=== PATIENT | female | born 1975 | race Hispanic/Latino ===

== ENCOUNTER 2017-07-03 14:52 | Emergency (ER) | payer MEDICAID ==
[~2017-07-03 14:52] MED LIST: AMLO5TAB2 PO; CA C1TAB73 PO; CARV25TA PO; CETI10TA57 PO; FOLI1TAB85 PO; LOSA50TA37 PO; PANT40TA25 PO; ROPI1TAB11 PO; SERT20OR6 PO; SEVE800 PO; TRAM50TA4 PO; TRAZ-144 PO
[2017-07-03 16:10] LABS: BASOPHILS % (AUTO) 0.6 % (0.0-5.0); EOSINOPHILS % (AUTO) 5.1 % (0.0-8.0); HEMATOCRIT 27.2 % (36-48); LYMPHOCYTES % (AUTO) 12.7 % (21.0-51.0); MEAN CORPUSCULAR HEMOGLOBIN 31.1 pg (27.0-33.0); MEAN CORPUSCULAR HGB CONC 35.1 g/dL (32.0-36.0); MEAN CORPUSCULAR VOLUME 88.5 fL (79-99); MONOCYTES % (AUTO) 6.7 % (3.0-13.0); NEUTROPHILS % (AUTO) 74.9 % (40.0-77.0); PLATELET COUNT (AUTO) 88 K/uL (130-400); RED BLOOD CELL COUNT(AUTO) 3.07 MIL/uL (4.00-5.50); RED CELL DISTRIBUTION WIDTH 16.1 % (11.0-15.5)
[2017-07-03 16:22] LABS: INR 0.97 (0.85-1.15); PARTIAL THROMBOPLASTIN TIME 18.6 SEC (26.3-35.5); PROTHROMBIN TIME 10.2 SEC (9.6-11.6)
[2017-07-03 16:24] LABS: ALBUMIN 3.9 g/dL (3.5-5.0); BILIRUBIN,TOTAL 0.9 mg/dL (0.2-1.0); POTASSIUM 4.1 mmol/L (3.5-5.1); TOTAL PROTEIN, SERUM 7.4 g/dL (6.0-8.3)
[2017-07-03 16:25] LABS: B-TYPE NATRIURETIC PEPTIDE 2730 pg/mL (0-100)
[2017-07-03 16:30] LABS: CREATININE 8.8 mg/dL (0.5-1.5)
[2017-07-03] MEDS ORDERED: CLONIDINE HCL 0.1 MG TABLET ONE (16:31)
[2017-07-03 17:12] LABS: APPEARANCE,URINE SL CLOUDY (CLEAR); BILIRUBIN,URINE NEGATIVE (NEGATIVE); COLOR,URINE YELLOW (YELLOW); GLUCOSE, URINE (UA) 250 mg/dL (NEGATIVE); KETONES,URINE NEGATIVE (NEGATIVE); LEUKOCYTE ESTERASE ,URINE LARGE (NEGATIVE); NITRATE,URINE NEGATIVE (NEGATIVE); OCCULT BLOOD,URINE SMALL (NEGATIVE); PH,URINE 8.5 (5.0-8.0); PROTEIN,URINE >=300 (NEGATIVE); UROBILINOGEN,URINE 0.2 mg/dL (0.2-1.0)
[2017-07-03 17:25] LABS: WBC,URINE 26-50 /HPF (0-1)
[2017-07-03 17:26] LABS: BACTERIA,URINE Moderate /HPF (None Seen); RENAL EPITHELIAL CELLS,URINE Few /HPF (None Seen); TRANSITIONAL EPI CELLS,URINE Moderate /HPF (None Seen)
[2017-07-03] MEDS ORDERED: SODIUM CHLORIDE 0.9% 50 ML IV ONE (17:36)
[2017-07-03] MEDS ORDERED: CEFTRIAXONE SODIUM 1 GM ONE ×2 (17:36→17:54)
[2017-07-03] MEDS ORDERED: LIDOCAINE HCL-MPF 1% 2ML VIAL ONE (17:55)
== END 2017-07-03 18:19 | disposition home or self-care (01) ==
LOC: EDH 14:52
DX: N30.00 Acute cystitis without hematuria (principal); I12.0 Hypertensive chronic kidney disease with stage 5 chronic kidney disease or end stage renal disease; N18.6 End stage renal disease; Z72.0 Tobacco use
CPT/HCPCS: 36415; 71045; 80053; 81001; 83690; 83880; 84484; 85025; 85610; 85730; 87040 ×2; 87804 ×2; 93005; 96372; 99285; J0696 ×2; J3490

== ENCOUNTER 2017-07-17 20:15 | Emergency (ER) | payer MEDICAID ==
[2017-07-17] MEDS ORDERED: IPRATROPIUM/ALBUTEROL SULFATE 3 ML SOLUTION IH ONE (20:42)
[2017-07-17 20:58] LABS: BASOPHILS % (AUTO) 4.1 % (0.0-5.0); EOSINOPHILS % (AUTO) 4.1 % (0.0-8.0); HEMATOCRIT 28.5 % (36-48); LYMPHOCYTES % (AUTO) 8.3 % (21.0-51.0); MEAN CORPUSCULAR HGB CONC 34.5 g/dL (32.0-36.0); MONOCYTES % (AUTO) 4.6 % (3.0-13.0); NEUTROPHILS % (AUTO) 78.9 % (40.0-77.0); PLATELET COUNT (AUTO) 116 K/uL (130-400); RED BLOOD CELL COUNT(AUTO) 3.17 MIL/uL (4.00-5.50); WHITE BLOOD COUNT (AUTO) 5.5 K/uL (4.8-10.8)
[2017-07-17 21:06] LABS: INR 0.99 (0.85-1.15); PROTHROMBIN TIME 10.4 SEC (9.6-11.6)
[2017-07-17 21:20] LABS: ALBUMIN 3.8 g/dL (3.5-5.0); BILIRUBIN,TOTAL 1.4 mg/dL (0.2-1.0); CREATINE KINASE MB 0.8 ng/mL (0.5-3.6); POTASSIUM 4.7 mmol/L (3.5-5.1); TOTAL PROTEIN, SERUM 7.1 g/dL (6.0-8.3)
[2017-07-17 21:24] LABS: B-TYPE NATRIURETIC PEPTIDE 3220 pg/mL (0-100); CREATININE 14.2 mg/dL (0.5-1.5)
[2017-07-17] MEDS ORDERED: CARVEDILOL 12.5 MG TABLET PO ONE (21:58)
[2017-07-17] MEDS ORDERED: HYDROCHLOROTHIAZIDE 25 MG TABLET ONE (22:01)
[2017-07-17] MEDS ORDERED: HYDRALAZINE HCL 20 MG/ML VIAL ONE ×2 (22:39→23:36)
[2017-07-17] MEDS ORDERED: HYDROXYZINE HCL 25 MG TABLET ONE (23:35)
== END 2017-07-18 00:03 | disposition home or self-care (01) ==
LOC: EDH 20:15
DX: I12.0 Hypertensive chronic kidney disease with stage 5 chronic kidney disease or end stage renal disease (principal); N18.6 End stage renal disease; B34.9 Viral infection, unspecified; Z90.710 Acquired absence of both cervix and uterus; Z99.2 Dependence on renal dialysis; Z98.890 Other specified postprocedural states
CPT/HCPCS: 36415; 71045; 80053; 82550; 82553; 83690; 83880; 84484; 85025; 85610; 85730; 93005; 94640; 96365; 96376; 99285; J0360 ×2

== ENCOUNTER → 2017-08-17 | Outpatient (CLI) | payer MEDICAID ==
[~2017-08-17] MED LIST changes: -TRAZ-144 PO; +TRAZ-185 PO
== END | disposition home or self-care (01) ==
LOC: SHCH 15:52
PROVIDERS: ATTEND Internal Medicine Cardiovascular Disease
DX: I51.7 Cardiomegaly (principal); I34.0 Nonrheumatic mitral (valve) insufficiency
CPT/HCPCS: 93306

== ENCOUNTER 2017-09-28 19:51 | Observation (INO) | payer MEDICAID ==
[2017-09-28 20:24] LABS: BASOPHILS % (AUTO) 0.3 % (0.0-5.0); EOSINOPHILS % (AUTO) 0.9 % (0.0-8.0); HEMATOCRIT 38.8 % (36-48); LYMPHOCYTES % (AUTO) 5.6 % (21.0-51.0); MEAN CORPUSCULAR HEMOGLOBIN 29.4 pg (27.0-33.0); MEAN CORPUSCULAR HGB CONC 32.9 g/dL (32.0-36.0); MEAN CORPUSCULAR VOLUME 89.4 fL (79-99); MONOCYTES % (AUTO) 5.7 % (3.0-13.0); NEUTROPHILS % (AUTO) 87.5 % (40.0-77.0); PLATELET COUNT (AUTO) 95 K/uL (130-400); RED BLOOD CELL COUNT(AUTO) 4.33 MIL/uL (4.00-5.50); RED CELL DISTRIBUTION WIDTH 17.9 % (11.0-15.5); WHITE BLOOD COUNT (AUTO) 6.3 K/uL (4.8-10.8)
[2017-09-28] MEDS ORDERED: ACETAMINOPHEN EXTRA STRENGTH 500 MG TABLET ONE (20:36)
[2017-09-28] MEDS ORDERED: PROMETHAZINE HCL 25 MG/ML 1ML AMPULE IM ONE (20:36)
[2017-09-28] MEDS ORDERED: ZOSYN 3.375GM+NS 50ML 50 ML IV ONE (20:36)
[2017-09-28 20:42] LABS: ALBUMIN 3.9 g/dL (3.5-5.0); BILIRUBIN,DIRECT 0.1 mg/dL (0.0-0.3); BILIRUBIN,TOTAL 1.3 mg/dL (0.2-1.0); TOTAL PROTEIN, SERUM 8.1 g/dL (6.0-8.3)
[2017-09-28 20:47] LABS: B-TYPE NATRIURETIC PEPTIDE > 5000 pg/mL (0-100)
[2017-09-28 21:09] LABS: ABG BASE EXCESS -6.2 mmol/L (-2.0-3.0); ABG HCO3 17.2 mmol/L (21.0-28.0); ABG OXYGEN SATURATION 96.3 % (95.0-99.0); ABG PCO2 29 mmHg (32-45)
[2017-09-28 21:20] LABS: POTASSIUM 6.3 mmol/L (3.5-5.1)
[2017-09-28 21:22] LABS: CREATININE 17.2 mg/dL (0.5-1.5)
[2017-09-28] MEDS ORDERED: ALBUTEROL SULFATE 0.083% 2.5 MG/3 ML INH IH ONE (21:28)
[2017-09-28] MEDS ORDERED: DEXTROSE 50%-WATER 50 ML DISP.SYRIN IV ONE (21:31)
[2017-09-28] MEDS ORDERED: SODIUM BICARB 50MEQ 50ML VIAL ONE (21:31)
[2017-09-28] MEDS ORDERED: INSULIN HUMULIN R 100 UNIT/ML 3ML ONE (21:32)
[2017-09-28] MEDS ORDERED: FUROSEMIDE 10 MG/ML 4ML VIAL ONE (23:50)
[2017-09-28] MEDS ORDERED: ALPRAZOLAM 0.25 MG TABLET ONE (23:57)
[2017-09-28] MEDS ORDERED: ZOLPIDEM TARTRATE 5 MG TAB ONE (23:57)
== END 2017-09-29 01:19 | disposition left against medical advice (07) ==
LOC: EDH 19:51 → EDHIP 19:52
PROVIDERS: ADMIT Internal Medicine Nephrology; ATTEND Internal Medicine Nephrology
DX: I13.2 Hypertensive heart and chronic kidney disease with heart failure and with stage 5 chronic kidney disease, or end stage renal disease (principal); E11.22 Type 2 diabetes mellitus with diabetic chronic kidney disease; I50.9 Heart failure, unspecified; N18.6 End stage renal disease; E87.5 Hyperkalemia; N26.9 Renal sclerosis, unspecified; F41.9 Anxiety disorder, unspecified; M10.9 Gout, unspecified; Z84.1 Family history of disorders of kidney and ureter; Z91.19 Patient's noncompliance with other medical treatment and regimen; Z99.2 Dependence on renal dialysis; Z79.899 Other long term (current) drug therapy
CPT/HCPCS: 36415; 36600; 71045; 74176; 76705; 80048; 80076; 82330; 82435; 82803; 82947; 82948; 83605 ×2; 83690; 83880; 84132; 84295; 84484; 84702; 85018; 85025; 87040 ×2; 93005; 94640; 99285; G0378 ×5; J1815; J1940; J2543; J2550; J3490; J7070

== ENCOUNTER 2018-05-05 15:10 | Emergency (ER) | payer MEDICAID ==
[~2018-05-05 15:10] MED LIST changes: -AMLO5TAB2 PO; +AMLO5TAB9 PO; -LOSA50TA37 PO; +LOSA50TA64 PO
[2018-05-05 16:15] LABS: HEMATOCRIT 32.3 % (36-48); MEAN CORPUSCULAR HEMOGLOBIN 28.7 pg (27.0-33.0); MEAN CORPUSCULAR HGB CONC 32.5 g/dL (32.0-36.0); MEAN CORPUSCULAR VOLUME 88.2 fL (79-99); MONOCYTES % (AUTO) 8.6 % (3.0-13.0); NEUTROPHILS % (AUTO) 68.4 % (40.0-77.0); PLATELET COUNT (AUTO) 165 K/uL (130-400); RED BLOOD CELL COUNT(AUTO) 3.66 MIL/uL (4.00-5.50); RED CELL DISTRIBUTION WIDTH 18.6 % (11.0-15.5); WHITE BLOOD COUNT (AUTO) 5.6 K/uL (4.8-10.8)
[2018-05-05 16:26] LABS: POTASSIUM 5.8 mmol/L (3.5-5.1)
[2018-05-05 16:27] LABS: CREATININE 9.2 mg/dL (0.5-1.5)
[2018-05-05 16:28] LABS: INR 1.01 (0.85-1.15); PARTIAL THROMBOPLASTIN TIME 26.1 SEC (26.3-35.5); PROTHROMBIN TIME 10.6 SEC (9.6-11.6)
== END 2018-05-05 18:13 | disposition left against medical advice (07) ==
LOC: EDH 15:10
DX: I12.0 Hypertensive chronic kidney disease with stage 5 chronic kidney disease or end stage renal disease (principal); N18.6 End stage renal disease; M79.89 Other specified soft tissue disorders; Z99.2 Dependence on renal dialysis
CPT/HCPCS: 36415; 80048; 85025; 85610; 85730; 93990

== ENCOUNTER 2018-09-15 06:03 | Day surgery (SDC) | payer MEDICAID ==
[2018-09-09 10:50] VITALS: BP 204/92
[2018-09-09 11:05] LABS: BASOPHILS % (AUTO) 1.3 % (0.0-5.0); EOSINOPHILS % (AUTO) 6.2 % (0.0-8.0); HEMATOCRIT 34.7 % (36-48); LYMPHOCYTES % (AUTO) 16.1 % (21.0-51.0); MEAN CORPUSCULAR HGB CONC 32.7 g/dL (32.0-36.0); MEAN CORPUSCULAR VOLUME 91.8 fL (79-99); MONOCYTES % (AUTO) 5.8 % (3.0-13.0); NEUTROPHILS % (AUTO) 70.6 % (40.0-77.0); NUCLEATED RED BLOOD CELLS 0.2 % (0.0-0.19); PLATELET COUNT (AUTO) 127 K/uL (130-400); RED BLOOD CELL COUNT(AUTO) 3.78 MIL/uL (4.00-5.50); RED CELL DISTRIBUTION WIDTH 18.9 % (11.0-15.5)
--- NOTE | 2018-09-09 11:05 | NUR ---
NOTE PT'S BLOOD PRESSURE ELEVATED SBP 200'S, PT STATES SHE USUALLY RUNS HIGH LIKE THIS ESPECIALLY ON DIALYSIS DAYS. STATES SHE TAKES HER CLONIDINE BEFORE GOING TO DIALYSIS, THEN RIGHT ABOUT AFTER DIALYSIS, PER HER PCP. PT STATES SHE HAS A HEADACHE, USUALLY HAS ONE ON DIALYSIS DAYS WELL, TOOK TYLENOL AT THE DIALYSIS CENTER EARLIER. PT TOOK HER CLONIDINE AT THIS TIME. PT DENIES CHEST PAIN, SOB, DIZZINESS OR OTHER CARDIAC SYMPTOMS. WILL RECHECK BP.
[2018-09-09 11:12] LABS: CREATININE 5.7 mg/dL (0.5-1.5); POTASSIUM 3.7 mmol/L (3.5-5.1)
[2018-09-09 11:28] LABS: INR 1.03 (0.85-1.15); PARTIAL THROMBOPLASTIN TIME 26.1 SEC (26.3-35.5); PROTHROMBIN TIME 10.8 SEC (9.6-11.6)
[2018-09-09 11:45] VITALS: BP_SYST 202; BP_SYST 223; BP_DIAS 100; BP_DIAS 105
--- NOTE | 2018-09-09 11:50 | NUR ---
NOTE BP RECHECKED (VITAL SIGNS RECORD), STILL ELEVATED SBP 200'S. NOTIFIED MAURICE VELAZQUEZ, PER ANJELICA, TO SEND PT TO THE EMERGENCY DEPARTMENT. ADVISED PT TO GET SEEN IN THE EMERGENCY DEPT. PT REFUSED, DID NOT WANT TO GO TO ER DESPITE EXPLAINING THE RISKS. PT STATES SHE WILL BE FINE ONCE SHE EATS AND RESTS AT HOME. MAURICE VELAZQUEZ MADE AWARE PT REFUSED TO GO TO ER. PT ADVISED TO SEEK MEDICAL ATTENTION/CALL PCP REGARDING HIGH BP, OR GO TO EMERGENCY ROOM FOR IF ELEVATED BP PERSISTS OR WITH CARDIAC SYMPTOMS, EXPLAINED TO PT. PT VERBALIZED UNDERSTANDING.
--- NOTE | 2018-09-14 10:27 | NUR ---
ABNORMAL LABS CBC RESULT SHOWED/REPORTED TO MAURICE VELAZQUEZ. NO FURTHER ORDERS GIVEN. ALSO NOTIFIED ANJELICA THAT PT WAS TAKING ANTIBIOTIC FOR EAR INFECTION AT TIME OF PREOP, SHOULD BE COMPLETED BY THIS TIME.
[~2018-09-15] VITALS: Ht 153.7 cm; Wt 64.5 kg
[2018-09-15] VITALS (23 sets, daily range): BP systolic 135–219; BP diastolic 73–117
[~2018-09-15 06:03] MED LIST changes: +ACET215 AD; +ACETAMINOPHEN 325 MG TAB PO PRN; +AMLO10TA7 PO; -AMLO5TAB9 PO; +BUDE10.2 IH; -CA C1TAB73 PO; +CALC0.253 PO; -CETI10TA57 PO; +CLON0.3T2 PO; +FAMO20TA8 PO; +LATA2.5D2 OP; +LOSA100T58 PO; -LOSA50TA64 PO; +MONT10TA21 PO; -PANT40TA25 PO; -SERT20OR6 PO; +SERT50TA12 PO; +SODIUM CHLORIDE 0.9% 500ML 500 ML IV SCH; +TIMO.5OS OD
--- NOTE | 2018-09-15 06:15 | NUR ---
PRE-PROCEDURE RECEIVED VIA WALKING TO ROOM 14 FOR SCHEDULE SUPERIOR VENA CAVA ANGIOGRAM DIALYSIS GRAFT APPROACH. AWAKE IN NO ACUTE DISTRESS. PER PT SHE HAS BEEN HAVING FACIAL AND LEFT BREAST SWELLING, SOA WITH TALKING/WALKING STARTING IN APRIL. CONNECTED TO CONTINUOUS CARDIOPULMONARY MONITORING. DENIES PAIN. BED IN LOWEST POSITION, CALL LIGHT W/IN REACH, SIDE RAILS UP X2. IV ATTEMPTED X3 UNSUCCESSFUL. Addendum: 09/15/18 at 0746 by FAUSTINO VALVERDE RN RN PER PT SHE HAS BEEN HAVING "BLEEDING" FROM HER EAR FOR 1 1/2 MONTHS AND IS CURRENTLY TAKING ANTIBIOTICS FOR TREATMENT. PER PT SHE AMBULATES W/O ASSISTANCE BUT DUE TO FEELING TIRED W/ DIALYSIS SHE HAS A PROVIDER THAT COMES TO THE HOUSE DAILY TO HELP BATHE/OTHER CHORES. Addendum: 09/15/18 at 1654 by FAUSTINO VALVERDE RN RN SWELLING NOTED TO LEFT FACE, NECK, AND BREAST.
--- NOTE | 2018-09-15 06:40 | NUR ---
INTEGUMENTARY PT HAS MULTIPLE SMALL SORES DRY W/O DRAINAGE. TO UPPER AND LOWER EXTREMITIES. PER PT THEY ARE FROM TAKING PHOSPHORUS FROM DIALYSIS. Addendum: 09/15/18 at 1020 by FAUSTINO VALVERDE RN RN CORRECTION FROM INCREASED PHOSPHORUS.
--- NOTE | 2018-09-15 06:50 | NUR ---
PRE-PROCEDURE MACHELLE KAT FROM BELT POLISHER HERE TO PROCESS SAFETY ENGINEERING TECHNOLOGIST PT. INFORMED OF UNSUCCESSFUL IV ACCESS AND B/P 200/96.
[2018-09-15] MEDS ORDERED: LIDOCAINE HCL 2% 20ML ONE (07:05)
[2018-09-15] MEDS ORDERED: NITROGLYCERIN 5 MG/ML 10 ML VIAL IV ONE (07:05)
[2018-09-15] MEDS ORDERED: SODIUM BICARB 50MEQ 50ML VIAL ONE (07:05)
[2018-09-15] MEDS ORDERED: HEPARIN SODIUM 1000UNIT/ML 10ML VIAL ONE (07:05)
[2018-09-15] MEDS ORDERED: IODIXANOL 320 MG/ML 100 ML VIAL ONE (07:05)
[2018-09-15] MEDS ORDERED: IOHEXOL-350 50ML VIAL IV ONE (07:06)
[2018-09-15] MEDS ORDERED: IOHEXOL 350 MG/ML 100ML INFUS..BTL IV ONE ×2 (07:06→10:51)
[2018-09-15] MEDS ORDERED: SODIUM CHLORIDE 0.9% 1000ML 1,000 ML IV ONE (07:14)
[2018-09-15] MEDS ORDERED: MEPERIDINE-PF 25 MG/ML SYG ONE ×2 (07:26→08:32)
[2018-09-15] MEDS ORDERED: MIDAZOLAM HCL 1 MG/ML 2ML VIAL ONE ×2 (07:26→08:32)
[2018-09-15] MEDS ORDERED: ALBU8.5H8 IH (07:28)
[2018-09-15] MEDS ORDERED: AMOX1TAB15 PO (07:29)
[2018-09-15] MEDS ORDERED: NITROGLYCERIN 4.1 GM SPRAY TL ONE (07:45)
[2018-09-15] MEDS ORDERED: HYDRALAZINE HCL 20 MG/ML VIAL ONE ×2 (08:43→11:35)
[2018-09-15] MEDS ORDERED: SODIUM CHLORIDE 0.9% 10 ML VIAL IVP SCH (09:00)
--- NOTE | 2018-09-15 09:29 | NUR ---
POST-PROCEDURE RECEIVED FROM JUVENILE OFFICER POST-PROCEDURE VIA BED BY NORTH ANAND RN. CONNECTED TO CONTINUOUS CARDIOPULMONARY MONITORING. DROWSY, BUT EASILY AROUSED TO VERBAL COMMAND. DENIES PAIN. 7F SHEATH PRESENT TO LEFT UPPER ARM. DRESSING DRY AND INTACT. SITE SOFT, NON-TENDER. BED IN LOWEST POSITION, CALL LIGHT W/IN REACH, SIDE RAILS UP X2. AT BEDSIDE UPDATE ON PLAN TO DO CT ANGIOGRAM AND SURGICAL CONSULT. VERBALIZED UNDERSTANDING. Addendum: 09/15/18 at 1548 by FAUSTINO VALVERDE RN RN HEPARIN 2UNITS/ML INFUSING VIA PRESSURE BAG 250MM/HG.
--- NOTE | 2018-09-15 09:40 | NUR ---
ORDER SPOKE WITH FLETCHER SHARPE REGARDING ORDER FOR CT ANGIOGRAM. PER ANNEMARIE THERE ARE 3-4 PATIENTS BEFORE THIS PT CAN BE DONE. WIRE DRAWING SETTER MADE AWARE.
--- NOTE | 2018-09-15 10:55 | NUR ---
ORDER TRANSFERRED TO BOOSTER PUMP OILER VIA BED WITH PORTABLE MONITOR IN PLACE. 7F SHEATH PRESENT TO LEFT UPPER ARM SITE SOFT, NON-TENDER, DRESSING CLEAN, DRY, AND INTACT. HEPARIN INFUSING VIA PRESSURE BAG OM457TA/HG. AWAKE IN NO ACUTE DISTRESS. DENIES PAIN.
--- NOTE | 2018-09-15 11:26 | NUR ---
POST PROCEDURE CT ANGIOGRAM OF CHEST AND ABDOMEN COMPLETED W/O COMPLICATIONS. TRANSFERRED BACK TO ROOM 14 VIA BED WITH PORTABLE MONITOR IN PLACE. AWAKE IN NO ACUTE DISTRESS. DENIES PAIN. 7F SHEATH PRESENT TO LEFT UPPER ARM. SITE W/O SIGNS OF BLEEDING. SITE SOFT, NON-TENDER, DRESSING CD&I. NORTH ANAND RN NOTIFIED THAT CT ANGIOGRAM WAS COMPLETED.
--- NOTE | 2018-09-15 11:30 | NUR ---
HTN SPOKE WITH NORTH ANAND RN IN CRM BUSINESS ANALYST. DR. PEREZ MADE AWARE THAT B/P 204/155. HYDRALAZINE 10MG IVP X1 ORDERED. WILL CONTINUE TO MONITOR B/P.
[2018-09-15] MEDS ORDERED: HYDRALAZINE HCL 20 MG/ML VIAL IV SCH ×3 (11:39→14:22)
--- NOTE | 2018-09-15 11:42 | NUR ---
HTN B/P 225/109. HYDRALAZINE 10MG IVP ADMINISTERED.
[2018-09-15] MEDS ORDERED: LIDOCAINE HCL 1% MDV 50ML VIAL ONE (11:46)
--- NOTE | 2018-09-15 11:58 | NUR ---
HTN SPOKE WITH NORTH ANAND RN IN SILVERWARE BUFFING MACHINE OPERATOR. DR. PEREZ NOTIFIED B/P 210/162. ORDER RECEIVED FOR HYDRALAZINE 10MG IVP X1.
--- NOTE | 2018-09-15 12:00 | NUR ---
KEO B/P 210/102. HYDRALAZINE 10MG IVP GIVEN ORDERED. Addendum: 09/15/18 at 1546 by FAUSTINO VALVERDE RN RN CORRECTION HTN
[2018-09-15] MEDS ORDERED: LORAZEPAM 2 MG/ML 1 ML VIAL IVP SCH (12:07)
[2018-09-15] MEDS ORDERED: LORAZEPAM 2 MG/ML 1 ML VIAL ONE (12:17)
[2018-09-15] MEDS ORDERED: FENTANYL CITRATE PF 50 MCG/1 ML 2ML VIAL ONE (12:18)
[2018-09-15] MEDS ORDERED: FENTANYL CITRATE PF 50 MCG/1 ML 2ML VIAL IVP SCH (12:20)
--- NOTE | 2018-09-15 12:20 | NUR ---
MEDICATION CORRECTION: ATIVAN 1MG IVP ACTUAL ADMINISTRATION TIME 1221.
--- NOTE | 2018-09-15 14:00 | NUR ---
RESPIRATORY TRANSIENT DESATURATIONS TO 88-90% WHEN ASLEEP. IMPROVES WITH REPOSITIONING.
--- NOTE | 2018-09-15 14:22 | NUR ---
HTN B/P 194/99. DR. PEREZ INFORMED OF HTN. ORDER RECEIVED FOR HYDRALAZINE 10MG IVP ONCE.
--- NOTE | 2018-09-15 15:42 | NUR ---
HTN B/P 208/101. PT ASLEEP AT PRESENT TIME. MAURICE VELAZQUEZ PAGED.
[2018-09-15] MEDS ORDERED: ONDANSETRON HCL 4 MG/2 ML VIAL IVP PRN (16:00)
--- NOTE | 2018-09-15 16:20 | NUR ---
REPORT RECEIVED REPORT FROM Adriel VALVERDE, RN. PT LYING IN BED. RESTING. GETS SOB WHILE TALKING. DENIES ANY PAIN TO LEFT ARM. NO SWELLING, OOZING TO LEFT ARM. DR. PEREZ HERE. ORDERS RECEIVED TO CALL DR. KELLEY, PTS ASSEMBLER SANDAL PARTS TO INFORM OF PTS BP IN 200'S AND ASK HIS RECOMMENDATIONS.
--- NOTE | 2018-09-15 16:20 | NUR ---
REPORT BEDSIDE REPORT GIVEN TO MACHELLE ARAYA USING SBAR. VERBALIZED UNDERSTANDING. CATH SITE TO LEFT UPPER ARM W/O SIGNS OF BLEEDING. SITE SOFT, NON-TENDER. DRESSING CD&I. DENIES PAIN. REMAINS NPO PENDING SURGICAL CONSULT. CALL LIGHT W/I REACH, BED IN LOWEST POSITION, SIDE RAILS UP X2.
[2018-09-15] MEDS ORDERED: LABETALOL 20 MG/4 ML DISP.SYRIN IV SCH (16:30)
[2018-09-15] MEDS ORDERED: HYDRALAZINE HCL 20 MG/ML VIAL IV PRN (16:30)
--- NOTE | 2018-09-15 16:30 | NUR ---
HTN DR. PEREZ ON UNIT. NOTIFIED PTS B/P 216/108. ORDER RECEIVED FOR LABETALOL 10MG IVP X1 AND TO ADMINISTER PREVIOUS ORDER FOR HYDRALAZINE 10MG. Addendum: 09/15/18 at 1659 by FAUSTINO VALVERDE RN RN NOTIFY DR. KELLEY OF PERSISTENT HTN.
--- NOTE | 2018-09-15 16:38 | NUR ---
DR. KELLEY CALLED DR. KELLEY TO INFORM OF PTS PROCEDURE, UPCOMING SURGERY CONSULT, SBP IN 200'S. NO ORDERS RECEIVED. DOES NOT WANT TO ADMIT PT.
--- NOTE | 2018-09-15 16:42 | NUR ---
HTN B/P 200/95. LABETALOL 10MG IVP GIVEN ORDERED. WILL CONTINUE TO MONITOR.
--- NOTE | 2018-09-15 16:50 | NUR ---
CONSULT DR. HARJIT ALAN NURSE ON PHONE. STATES DR. LOMBARDI WILL NOT SEE PT TODAY. PT TO FOLLOW UP WITH HIM AN OUTPT STATUS.
--- NOTE | 2018-09-15 16:53 | NUR ---
F/U HTN B/P 180/95
--- NOTE | 2018-09-15 17:00 | NUR ---
DISCHARGE MAURICE BERNAL ON PHONE. DISCHARGE PT HOME WITH HER BASELINE BLOOD PRESSURE ON ARRIVAL. PT WILL RESUME HOME MEDS.
--- NOTE | 2018-09-15 18:15 | NUR ---
DISCHARGE ORAL AND WRITTEN DISCHARGE INSTRUCTIONS GIVEN TO PT AND PTS BOYFRIEND. INSTRUCTED ON IMPORTANCE OF MONITORING PTS SITE ANYI FIRMNESS, BLEEDING. ANY CHEST , SOB NEEDS TO REPORT TO ER. BOTH VERBALIZED UNDERSTANDING. WILL REPORT TO BOTH POST OP APPTS PER INSTRUCTED.
[2018-09-20] MEDS ORDERED: TIMO.5OS OU (02:01)
== END 2018-09-15 18:20 | disposition home or self-care (01) ==
LOC: DAH 06:03
PROVIDERS: ATTEND Internal Medicine Cardiovascular Disease
DX: I87.1 Compression of vein (principal); Z79.899 Other long term (current) drug therapy; I12.0 Hypertensive chronic kidney disease with stage 5 chronic kidney disease or end stage renal disease; N18.6 End stage renal disease; Z99.2 Dependence on renal dialysis; Z83.3 Family history of diabetes mellitus; Z82.49 Family history of ischemic heart disease and other diseases of the circulatory system
CPT/HCPCS: 36415; 36901; 71045; 71275; 74174; 80048; 82948; 85025; 85610; 85730; 93005; A4606; C1725; C1769 ×3; C1887; C1894 ×2; J0360 ×5; J1644 ×2; J2060; J2175 ×2; J2250 ×2; J3010; J3490 ×4; J7030; Q9967 ×3; 74175; 99156; 99157

== ENCOUNTER 2018-09-19 18:46 | Observation (INO) | payer MEDICAID ==
[~2018-09-19] VITALS: Ht 157.5 cm; Wt 66.6 kg
[~2018-09-19 18:46] MED LIST changes: -ACETAMINOPHEN 325 MG TAB PO PRN; +ALBU8.5H8 IH; +AMOX1TAB15 PO; -SODIUM CHLORIDE 0.9% 500ML 500 ML IV SCH
[2018-09-19 19:33] LABS: BASOPHILS % (AUTO) 1.1 % (0.0-5.0); EOSINOPHILS % (AUTO) 5.6 % (0.0-8.0); HEMATOCRIT 36.6 % (36-48); LYMPHOCYTES % (AUTO) 15.7 % (21.0-51.0); MEAN CORPUSCULAR HEMOGLOBIN 29.7 pg (27.0-33.0); MEAN CORPUSCULAR HGB CONC 32.7 g/dL (32.0-36.0); MONOCYTES % (AUTO) 7.2 % (3.0-13.0); NEUTROPHILS % (AUTO) 70.4 % (40.0-77.0); NUCLEATED RED BLOOD CELLS 0.3 % (0.0-0.19); PLATELET COUNT (AUTO) 162 K/uL (130-400); RED BLOOD CELL COUNT(AUTO) 4.02 MIL/uL (4.00-5.50); RED CELL DISTRIBUTION WIDTH 18.5 % (11.0-15.5); WHITE BLOOD COUNT (AUTO) 5.5 K/uL (4.8-10.8)
[2018-09-19 19:47] LABS: INR 1.02 (0.85-1.15); PARTIAL THROMBOPLASTIN TIME 25.7 SEC (26.3-35.5); PROTHROMBIN TIME 10.7 SEC (9.6-11.6)
[2018-09-19 19:54] LABS: ALBUMIN 3.7 g/dL (3.5-5.0); BILIRUBIN,TOTAL 1.1 mg/dL (0.2-1.0); POTASSIUM 4.3 mmol/L (3.5-5.1); TOTAL PROTEIN, SERUM 7.4 g/dL (6.0-8.3)
[2018-09-19 19:56] LABS: CREATININE 8.1 mg/dL (0.5-1.5)
[2018-09-19] MEDS ORDERED: LORAZEPAM 2 MG/ML 1 ML VIAL ONE ×2 (20:31→21:05)
[2018-09-19] MEDS ORDERED: HYDRALAZINE HCL 20 MG/ML VIAL ONE (20:31)
[2018-09-19] MEDS ORDERED: DiphenhydrAMINE HCL 50 MG/ML VIAL ONE (21:04)
[2018-09-19] MEDS ORDERED: LABETALOL 20 MG/4 ML DISP.SYRIN IV ONE (21:05)
[2018-09-19] MEDS ORDERED: NITROGLYCERIN 0.4 MG SL TAB SL PRN (22:45)
[2018-09-19] MEDS ORDERED: LABETALOL 20 MG/4 ML DISP.SYRIN IV PRN (22:45)
[2018-09-19] MEDS ORDERED: ONDANSETRON HCL 4 MG/2 ML VIAL IV PRN (22:45)
[2018-09-19] MEDS ORDERED: ACETAMINOPHEN 325 MG TAB PO PRN ×2 (22:45)
[2018-09-20 01:21] VITALS: BP 160/96
[2018-09-20] MEDS ORDERED: AMLO10TA7 PO (02:01)
[2018-09-20] MEDS ORDERED: TIMO.5OS OU ×2 (02:01)
[2018-09-20] MEDS ORDERED: LATA7.5D OU (02:06)
[2018-09-20 03:58] VITALS: BP 153/77
[2018-09-20 07:17] LABS: BASOPHILS % (AUTO) 0.9 % (0.0-5.0); EOSINOPHILS % (AUTO) 1.9 % (0.0-8.0); HEMATOCRIT 35.2 % (36-48); LYMPHOCYTES % (AUTO) 11.4 % (21.0-51.0); MEAN CORPUSCULAR HEMOGLOBIN 30.1 pg (27.0-33.0); MEAN CORPUSCULAR HGB CONC 33.1 g/dL (32.0-36.0); NEUTROPHILS % (AUTO) 80.8 % (40.0-77.0); NUCLEATED RED BLOOD CELLS 0.1 % (0.0-0.19); PLATELET COUNT (AUTO) 146 K/uL (130-400); RED BLOOD CELL COUNT(AUTO) 3.87 MIL/uL (4.00-5.50); RED CELL DISTRIBUTION WIDTH 18.2 % (11.0-15.5); WHITE BLOOD COUNT (AUTO) 5.4 K/uL (4.8-10.8)
[2018-09-20 07:44] LABS: ALBUMIN 3.9 g/dL (3.5-5.0); BILIRUBIN,TOTAL 1.1 mg/dL (0.2-1.0); MAGNESIUM 2.6 mg/dL (1.80-2.40); PHOSPHORUS 6.3 mg/dL (2.5-4.9); POTASSIUM 4.8 mmol/L (3.5-5.1); TOTAL PROTEIN, SERUM 7.5 g/dL (6.0-8.3)
[2018-09-20 07:48] VITALS: BP 171/91
[2018-09-20 07:49] LABS: TROPONIN I 0.12 ng/mL (0.00-0.06)
[2018-09-20 07:50] LABS: CREATININE 9.1 mg/dL (0.5-1.5)
[2018-09-20] MEDS ORDERED: TRAMADOL HCL 50 MG TABLET PO PRN (08:15)
[2018-09-20] MEDS ORDERED: ALBUTEROL SULFATE 0.083% 2.5 MG/3 ML INH IH PRN (08:30)
[2018-09-20] MEDS: FAMOTIDINE/PF 20 MG/2 ML VIAL IV SCH ×2 (09:00→22:37)
[2018-09-20] MEDS: CALCITRIOL 0.25 MCG CAPSULE PO SCH (10:19)
[2018-09-20] MEDS: AMOXICILLIN/POTASSIUM CLAV 500-125 TABLET PO SCH ×2 (10:19→22:37)
[2018-09-20] MEDS: CARVEDILOL 25 MG TABLET PO SCH ×2 (10:20→22:37)
[2018-09-20] MEDS: FOLIC ACID/VITAMIN B COMP W-C 1 MG CAPSULE PO SCH (10:20)
[2018-09-20] MEDS: SERTRALINE HCL 50 MG TABLET PO SCH (10:20)
[2018-09-20] MEDS: ROPINIROLE HCL 1 MG TABLET PO SCH ×2 (10:20→22:37)
[2018-09-20] MEDS: FAMOTIDINE 20MG TAB 20 MG TAB PO SCH (10:21)
[2018-09-20] MEDS: CLONIDINE HCL 0.3 MG TABLET PO SCH ×2 (10:21→22:37)
[2018-09-20] MEDS: TIMOLOL MALEATE 0.5% 5 ML BOTTLE OU SCH (10:21)
[2018-09-20] MEDS: ENOXAPARIN SODIUM 30 MG/0.3 ML SQ SCH (10:22)
[2018-09-20] MEDS: ALBUTEROL SULFATE 0.083% 2.5 MG/3 ML INH IH SCH ×3 (11:31→23:27)
[2018-09-20 11:41] VITALS: BP 151/80
[2018-09-20 12:29] LABS: TROPONIN I 0.12 ng/mL (0.00-0.06)
[2018-09-20] MEDS: SEVELAMER HCL 800 MG TABLET PO SCH ×2 (12:36→17:00)
[2018-09-20 15:42] VITALS: BP 146/75
[2018-09-20] MEDS: BUDESONIDE 0.5 MG/2 ML INH IH SCH (18:59)
[2018-09-20 19:37] VITALS: BP 148/79
[2018-09-20] MEDS ORDERED: LOSARTAN 100 MG TABLET PO SCH (21:00)
[2018-09-20] MEDS ORDERED: MONTELUKAST SODIUM 10 MG TAB PO SCH (21:00)
[2018-09-20] MEDS ORDERED: LATANOPROST 2.5 ML DROPS OU SCH (21:00)
[2018-09-20] MEDS ORDERED: TRAZODONE HCL 50 MG TAB PO SCH (21:00)
[2018-09-20] MEDS ORDERED: AMLODIPINE BESYLATE 5 MG TAB PO SCH (21:00)
[2018-09-21 00:16] VITALS: BP 115/59
[2018-09-21 04:53] VITALS: BP 118/63
[2018-09-21] MEDS: BUDESONIDE 0.5 MG/2 ML INH IH SCH ×2 (07:09→19:30)
[2018-09-21] MEDS: ALBUTEROL SULFATE 0.083% 2.5 MG/3 ML INH IH SCH ×3 (07:09→19:19)
[2018-09-21] MEDS: FOLIC ACID/VITAMIN B COMP W-C 1 MG CAPSULE PO SCH (07:49)
[2018-09-21] MEDS: SEVELAMER HCL 800 MG TABLET PO SCH ×3 (07:50→17:00)
[2018-09-21 07:52] VITALS: BP 140/69
[2018-09-21] MEDS: TIMOLOL MALEATE 0.5% 5 ML BOTTLE OU SCH (09:00)
[2018-09-21] MEDS: FAMOTIDINE/PF 20 MG/2 ML VIAL IV SCH (09:00)
[2018-09-21] MEDS: SERTRALINE HCL 50 MG TABLET PO SCH (09:00)
[2018-09-21] MEDS: ENOXAPARIN SODIUM 30 MG/0.3 ML SQ SCH (10:11)
[2018-09-21] MEDS: AMOXICILLIN/POTASSIUM CLAV 500-125 TABLET PO SCH (10:12)
[2018-09-21] MEDS: CARVEDILOL 25 MG TABLET PO SCH (10:12)
[2018-09-21] MEDS: CLONIDINE HCL 0.3 MG TABLET PO SCH (10:12)
[2018-09-21] MEDS: CALCITRIOL 0.25 MCG CAPSULE PO SCH (10:12)
[2018-09-21] MEDS: ROPINIROLE HCL 1 MG TABLET PO SCH (10:12)
[2018-09-21] MEDS: FAMOTIDINE 20MG TAB 20 MG TAB PO SCH (10:17)
--- NOTE | 2018-09-21 11:18 | NUR ---
I NOTED THAT PT HAS NO ORDERS FOR HEMODIALYSIS TODAY- I CALLED DR KELLEY AND ORDER WAS RECEIVED. PT INFORMED.
--- NOTE | 2018-09-21 11:24 | NUR ---
DIALYSIS NURSE JOSEPH CARTY NOTIFIED FOR TREATMENT
[2018-09-21 11:33] VITALS: BP 119/68
--- NOTE | 2018-09-21 11:53 | NUR ---
DR WARREN PEACE MADE
[2018-09-21 12:13] LABS: HEMATOCRIT 32.7 % (36-48); MEAN CORPUSCULAR HEMOGLOBIN 29.7 pg (27.0-33.0); MEAN CORPUSCULAR HGB CONC 32.4 g/dL (32.0-36.0); MEAN CORPUSCULAR VOLUME 91.5 fL (79-99); NUCLEATED RED BLOOD CELLS 0.4 % (0.0-0.19); PLATELET COUNT (AUTO) 136 K/uL (130-400); RED BLOOD CELL COUNT(AUTO) 3.57 MIL/uL (4.00-5.50); RED CELL DISTRIBUTION WIDTH 18.9 % (11.0-15.5); WHITE BLOOD COUNT (AUTO) 3.8 K/uL (4.8-10.8)
[2018-09-21 12:20] LABS: POTASSIUM 4.9 mmol/L (3.5-5.1)
[2018-09-21 12:23] LABS: CREATININE 11.3 mg/dL (0.5-1.5)
[2018-09-21 15:26] VITALS: BP 117/62
--- NOTE | 2018-09-21 16:18 | NUR ---
PT MOVED TO ROOM 221. NEEDED A PATENT SINK DRAIN FOR DIALYSIS
--- NOTE | 2018-09-21 19:20 | NUR ---
HAND OFF REPORT GIVEN TO ANNEMARIE CARTY
[2018-09-21 19:28] VITALS: BP 123/64
[2018-09-22 09:15] LABS: HEPATITIS A ANTIBODY IGM Negative (Negative); HEPATITIS B CORE IGM Negative (Negative); HEPATITIS Bs ANTIGEN SCREEN P Negative (Negative)
== END 2018-09-21 21:25 | disposition home or self-care (01) ==
LOC: EDH 18:46 → EDHIP 18:47 → 2DH 09-20 01:13
PROVIDERS: ADMIT Family Medicine; ATTEND Family Medicine
DX: I16.1 Hypertensive emergency (principal); D64.9 Anemia, unspecified; I13.2 Hypertensive heart and chronic kidney disease with heart failure and with stage 5 chronic kidney disease, or end stage renal disease; I50.32 Chronic diastolic (congestive) heart failure; N18.6 End stage renal disease; R11.2 Nausea with vomiting, unspecified; I42.9 Cardiomyopathy, unspecified; I73.9 Peripheral vascular disease, unspecified; F41.1 Generalized anxiety disorder; I87.1 Compression of vein; Z91.14 Patient's other noncompliance with medication regimen; Z91.15 Patient's noncompliance with renal dialysis; Z91.19 Patient's noncompliance with other medical treatment and regimen; Z99.2 Dependence on renal dialysis; Z82.49 Family history of ischemic heart disease and other diseases of the circulatory system; Z83.3 Family history of diabetes mellitus; Z79.899 Other long term (current) drug therapy
CPT/HCPCS: G0257 ×96; 36415; 71045; 80048; 80053; 80074; 82550; 83735; 83874; 84100; 84484; 85025; 85027; 85610; 85730; 87804; 90935; 93005; 94640; 94664; 96372; 96374; 99291; G0378; J0360; J1200; J1650; J2060; J3490

== ENCOUNTER 2021-02-15 21:22 | Inpatient (IN) | payer MEDICAID ==
[~2021-02-15] VITALS: Ht 154.9 cm; Wt 63.2 kg
[~2021-02-15 21:22] MED LIST changes: -ACET215 AD; +AMLO-258 PO; -AMLO10TA7 PO; -CLON0.3T2 PO; +CLON0.3T36 PO; -LATA2.5D2 OP; +LATA7.5D OU; -ROPI1TAB11 PO; +ROPI1TAB13 PO; +SERT-439 PO; -SERT50TA12 PO; -TIMO.5OS OD; +TIMO.5OS OU
[2021-02-15] MEDS ORDERED: NITROGLYCERIN 1GM OINT 1 INCH/1GM TD ONE (22:00)
[2021-02-15] MEDS ORDERED: HYDRALAZINE 20MG/ML VIAL IV ONE (22:00)
[2021-02-15] MEDS ORDERED: SOLU-MEDROL 125MG VIAL IVP ONE (22:00)
[2021-02-15] MEDS ORDERED: LABETALOL 20MG VIAL IV ONE (22:00)
[2021-02-15] MEDS ORDERED: NITROGLYCERIN 0.4 MG SL TAB SL PRN (22:00)
[2021-02-15] MEDS ORDERED: IPRATROPIUM/ALBUTEROL SULFATE 3 ML SOLUTION IH ONE ×2 (22:00→23:25)
[2021-02-15 22:28] LABS: ABG BASE EXCESS 1.5 mmol/L (-2.0-3.0); ABG HCO3 24.7 mmol/L (21.0-28.0); ABG OXYGEN SATURATION 97.9 % (95.0-99.0); ABG PCO2 35 mmHg (32-45)
[2021-02-15 22:47] LABS: BASOPHILS % (AUTO) 0.8 % (0.0-5.0); EOSINOPHILS % (AUTO) 4.4 % (0.0-8.0); HEMATOCRIT 34.4 % (36-48); LYMPHOCYTES % (AUTO) 14.9 % (21.0-51.0); MEAN CORPUSCULAR HEMOGLOBIN 30.2 pg (27.0-33.0); MEAN CORPUSCULAR HGB CONC 32.6 g/dL (32.0-36.0); MEAN CORPUSCULAR VOLUME 92.7 fL (79-99); MONOCYTES % (AUTO) 7.4 % (3.0-13.0); NEUTROPHILS % (AUTO) 72.2 % (40.0-77.0); PLATELET COUNT (AUTO) 118 K/uL (130-400); RED BLOOD CELL COUNT(AUTO) 3.71 MIL/uL (4.00-5.50); RED CELL DISTRIBUTION WIDTH 15.8 % (11.0-15.5); WHITE BLOOD COUNT (AUTO) 6.1 K/uL (4.8-10.8)
[2021-02-15 23:07] LABS: B-TYPE NATRIURETIC PEPTIDE 4540 pg/mL (0-100)
[2021-02-16] VITALS (22 sets, daily range): BP systolic 134–212; BP diastolic 60–105
[2021-02-16 00:16] LABS: ALBUMIN 3.6 g/dL (3.5-5.0); BILIRUBIN,TOTAL 1.8 mg/dL (0.2-1.0); TOTAL PROTEIN, SERUM 8.2 g/dL (6.0-8.3)
[2021-02-16 00:26] LABS: CREATININE 8.5 mg/dL (0.5-1.5)
[2021-02-16] MEDS ORDERED: ACETAMINOPHEN 325 MG TAB PO PRN (02:30)
[2021-02-16] MEDS ORDERED: ONDANSETRON 4MG INJ IV PRN (02:30)
[2021-02-16] MEDS ORDERED: HYDRALAZINE 20MG/ML VIAL IV PRN (02:30)
[2021-02-16] MEDS ORDERED: MAG/ALUM/SIMETH 30 ML UDCUP PO PRN (02:30)
[2021-02-16] MEDS ORDERED: NITROGLYCERIN 0.4 MG SL TAB SL PRN (02:30)
[2021-02-16 02:49] LABS: CHOLESTEROL 159 mg/dL (<200); HDL CHOLESTEROL 72 mg/dL (35-85); LDL DIRECT 62 mg/dL (0-99); TRIGLYCERIDES 131 mg/dL (30-200)
[2021-02-16] MEDS ORDERED: FOLI1TAB85 PO (05:13)
[2021-02-16] MEDS ORDERED: CLON0.2T PO (05:13)
[2021-02-16] MEDS ORDERED: ATOR10 PO (05:13)
[2021-02-16] MEDS ORDERED: HYDR-4153 PO (05:13)
[2021-02-16] MEDS ORDERED: SEVE800 PO (05:13)
[2021-02-16] MEDS ORDERED: DOXY-336 PO (05:13)
[2021-02-16] MEDS: ACETAMINOPHEN 325 MG TAB PO PRN ×3 (06:15→19:42)
[2021-02-16] MEDS: LOSARTAN 50 MG TABLET PO SCH ×2 (09:00→22:24)
[2021-02-16] MEDS: Vitamin B Complex/Vit C/Folic Acid PO SCH (11:17)
[2021-02-16] MEDS: DOXYCYCLINE HYCLATE 100 MG TABLET PO SCH ×2 (11:17→21:00)
[2021-02-16] MEDS: CALCITRIOL 0.25 MCG CAP PO SCH (11:17)
[2021-02-16] MEDS: CARVEDILOL 25 MG TABLET PO SCH ×2 (11:18→21:02)
[2021-02-16] MEDS: CLONIDINE HCL 0.2 MG TABLET PO SCH ×2 (11:18→21:01)
[2021-02-16] MEDS: SEVELAMER HCL 800 MG TABLET PO SCH ×3 (11:19→22:24)
[2021-02-16] MEDS: HYDRALAZINE 25MG TABLET PO SCH ×2 (11:19→21:01)
[2021-02-16] MEDS: SERTRALINE HCL 50 MG TABLET PO SCH (11:19)
[2021-02-16] MEDS: FAMOTIDINE 20MG VIAL IV SCH (11:25)
[2021-02-16] MEDS: HEPARIN 5,000 UNIT VIAL SQ SCH ×3 (11:28→21:03)
[2021-02-16] MEDS ORDERED: 0.9%NACL 1000ML 2,000 ML IV ONE (13:21)
[2021-02-16] MEDS: ATORVASTATIN 10 MG TABLET PO SCH (21:00)
[2021-02-16] MEDS: AMLODIPINE 5 MG TAB PO SCH (21:00)
[2021-02-16] MEDS: LATANOPROST 2.5 ML DROPS OU SCH (21:00)
[2021-02-17] MEDS: IPRATROPIUM/ALBUTEROL SULFATE 3 ML SOLUTION IH SCH ×4 (00:07→18:30)
[2021-02-17 03:59] VITALS: BP 146/59
[2021-02-17 07:00] VITALS: BP 154/85
[2021-02-17 07:18] LABS: BASOPHILS % (AUTO) 0.7 % (0.0-5.0); EOSINOPHILS % (AUTO) 1.2 % (0.0-8.0); HEMATOCRIT 34.1 % (36-48); LYMPHOCYTES % (AUTO) 22.2 % (21.0-51.0); MEAN CORPUSCULAR HEMOGLOBIN 29.2 pg (27.0-33.0); MEAN CORPUSCULAR HGB CONC 30.8 g/dL (32.0-36.0); MONOCYTES % (AUTO) 7.9 % (3.0-13.0); NEUTROPHILS % (AUTO) 67.3 % (40.0-77.0); PLATELET COUNT (AUTO) 141 K/uL (130-400); RED BLOOD CELL COUNT(AUTO) 3.59 MIL/uL (4.00-5.50); RED CELL DISTRIBUTION WIDTH 16.3 % (11.0-15.5)
[2021-02-17 07:29] LABS: CREATININE 6.7 mg/dL (0.5-1.5); MAGNESIUM 2.4 mg/dL (1.80-2.40); POTASSIUM 4.2 mmol/L (3.5-5.1)
[2021-02-17] MEDS: SERTRALINE HCL 50 MG TABLET PO SCH (08:13)
[2021-02-17] MEDS: LOSARTAN 50 MG TABLET PO SCH ×2 (08:13→21:55)
[2021-02-17] MEDS: CALCITRIOL 0.25 MCG CAP PO SCH (08:13)
[2021-02-17] MEDS: FAMOTIDINE 20MG VIAL IV SCH (08:13)
[2021-02-17] MEDS: SEVELAMER HCL 800 MG TABLET PO SCH ×3 (08:13→21:56)
[2021-02-17] MEDS: Vitamin B Complex/Vit C/Folic Acid PO SCH (08:14)
[2021-02-17] MEDS: DOXYCYCLINE HYCLATE 100 MG TABLET PO SCH ×2 (08:14→21:49)
[2021-02-17] MEDS: CLONIDINE HCL 0.2 MG TABLET PO SCH ×2 (08:14→21:53)
[2021-02-17] MEDS: CARVEDILOL 25 MG TABLET PO SCH ×2 (08:15→21:00)
[2021-02-17] MEDS: HEPARIN 5,000 UNIT VIAL SQ SCH ×3 (08:17→21:56)
[2021-02-17 11:00] VITALS: BP 156/79
[2021-02-17] MEDS: HYDRALAZINE 25MG TABLET PO SCH ×2 (11:53→21:52)
[2021-02-17 14:08] LABS: HEPATITIS Bs ANTIGEN SCREEN P Negative (Negative)
[2021-02-17 16:00] VITALS: BP 143/79
[2021-02-17 20:50] VITALS: BP 135/67
[2021-02-17] MEDS: LATANOPROST 2.5 ML DROPS OU SCH (21:00)
[2021-02-17] MEDS: ATORVASTATIN 10 MG TABLET PO SCH (21:49)
[2021-02-17] MEDS: AMLODIPINE 5 MG TAB PO SCH (21:52)
[2021-02-17 23:34] VITALS: BP 167/72
[2021-02-18] MEDS: IPRATROPIUM/ALBUTEROL SULFATE 3 ML SOLUTION IH SCH ×3 (00:43→11:11)
[2021-02-18 04:29] VITALS: BP 167/89
[2021-02-18 04:34] VITALS: BP 148/80
[2021-02-18 08:00] VITALS: BP 163/91
[2021-02-18 08:11] LABS: POTASSIUM 4.3 mmol/L (3.5-5.1)
[2021-02-18] MEDS: SEVELAMER HCL 800 MG TABLET PO SCH (09:29)
[2021-02-18] MEDS: CALCITRIOL 0.25 MCG CAP PO SCH (09:29)
[2021-02-18] MEDS: LOSARTAN 50 MG TABLET PO SCH (09:29)
[2021-02-18] MEDS: SERTRALINE HCL 50 MG TABLET PO SCH (09:30)
[2021-02-18] MEDS: FAMOTIDINE 20MG VIAL IV SCH (09:30)
[2021-02-18] MEDS: HYDRALAZINE 25MG TABLET PO SCH (09:30)
[2021-02-18] MEDS: DOXYCYCLINE HYCLATE 100 MG TABLET PO SCH (09:30)
[2021-02-18] MEDS: CLONIDINE HCL 0.2 MG TABLET PO SCH (09:30)
[2021-02-18] MEDS: CARVEDILOL 25 MG TABLET PO SCH (09:30)
[2021-02-18] MEDS: Vitamin B Complex/Vit C/Folic Acid PO SCH (09:30)
[2021-02-18] MEDS: HEPARIN 5,000 UNIT VIAL SQ SCH (09:31)
[2021-02-18] MEDS ORDERED: MINO2.5 PO (09:41)
[2021-02-18] MEDS ORDERED: CLON-353 PO (09:41)
[2021-02-18] MEDS ORDERED: LOSA50TA2 PO (09:41)
[2021-02-18] MEDS ORDERED: MINOXIDIL 2.5 MG TAB PO SCH (10:00)
[2021-02-18 11:57] VITALS: BP 165/84
[2021-02-18] MEDS ORDERED: CLONIDINE HCL 0.2 MG TABLET PO SCH (21:00)
== END 2021-02-18 12:30 | disposition home or self-care (01) | DRG 133 ==
LOC: EDH 21:22 → EDHIP 21:23 → UNDOADMIN 02-16 02:17 → 4CH 02-16 05:00
PROVIDERS: ADMIT Internal Medicine; ATTEND Internal Medicine
PROC: 5A1D70Z Performance of Urinary Filtration, Intermittent, Less than 6 Hours Per Day (ICD-10-PCS; principal; 2021-02-16)
DX: J96.01 Acute respiratory failure with hypoxia (principal); I13.2 Hypertensive heart and chronic kidney disease with heart failure and with stage 5 chronic kidney disease, or end stage renal disease; E11.22 Type 2 diabetes mellitus with diabetic chronic kidney disease; D69.6 Thrombocytopenia, unspecified; N18.6 End stage renal disease; E87.70 Fluid overload, unspecified; E78.5 Hyperlipidemia, unspecified; I16.0 Hypertensive urgency; E66.3 Overweight; Z68.28 Body mass index [BMI] 28.0-28.9, adult; D64.9 Anemia, unspecified; E78.00 Pure hypercholesterolemia, unspecified; Z20.822 Contact with and (suspected) exposure to COVID-19; Z99.2 Dependence on renal dialysis; Z91.15 Patient's noncompliance with renal dialysis; Z91.19 Patient's noncompliance with other medical treatment and regimen; Z83.3 Family history of diabetes mellitus; Z82.49 Family history of ischemic heart disease and other diseases of the circulatory system; I50.32 Chronic diastolic (congestive) heart failure
CPT/HCPCS: 36415; 36600; 71045; 78582; 80048; 80053; 80061; 82550; 82803; 83735; 83874; 83880; 84484; 84702; 85025; 85378; 86704; 86706; 87340; 87635; 90935; 93005; 93970; 94640; 94664; 99291; A9540; A9558; C9803; G0378; J0360; J1644; J2930; J3490; J7030

== ENCOUNTER 2021-06-25 17:08 | Emergency (ER) | payer MEDICAID ==
[~2021-06-25] VITALS: Ht 154.9 cm; Wt 64.9 kg
[~2021-06-25 17:08] MED LIST changes: -ALBU8.5H8 IH; -AMOX1TAB15 PO; +ATOR10 PO; -BUDE10.2 IH; +CLON-353 PO; -CLON0.3T36 PO; +DOXY-336 PO; -FAMO20TA8 PO; +HYDR-4153 PO; -LOSA100T58 PO; +LOSA50TA2 PO; +MINO2.5 PO; -MONT10TA21 PO; -ROPI1TAB13 PO; -TIMO.5OS OU; -TRAM50TA4 PO; -TRAZ-185 PO
[2021-06-25 18:20] LABS: BASOPHILS % (AUTO) 0.7 % (0.0-5.0); EOSINOPHILS % (AUTO) 4.4 % (0.0-8.0); HEMATOCRIT 37.3 % (36-48); LYMPHOCYTES % (AUTO) 16.8 % (21.0-51.0); MEAN CORPUSCULAR HGB CONC 31.9 g/dL (32.0-36.0); NEUTROPHILS % (AUTO) 70.9 % (40.0-77.0); PLATELET COUNT (AUTO) 130 K/uL (130-400); RED CELL DISTRIBUTION WIDTH 16.4 % (11.0-15.5); WHITE BLOOD COUNT (AUTO) 4.6 K/uL (4.8-10.8)
[2021-06-25 18:41] LABS: INR 1.04 (0.85-1.15); PROTHROMBIN TIME 11.3 SEC (9.6-11.6)
[2021-06-25 18:42] LABS: PARTIAL THROMBOPLASTIN TIME 26.2 SEC (26.3-35.5)
[2021-06-25 18:46] LABS: POTASSIUM 4.2 mmol/L (3.5-5.1)
[2021-06-25 18:55] LABS: ALBUMIN 3.9 g/dL (3.5-5.0); BILIRUBIN,TOTAL 2.3 mg/dL (0.2-1.0); TOTAL PROTEIN, SERUM 7.2 g/dL (6.0-8.3)
[2021-06-25 19:54] VITALS: BP 170/75
== END 2021-06-25 20:16 | disposition home or self-care (01) ==
LOC: EDH 17:08
DX: I12.0 Hypertensive chronic kidney disease with stage 5 chronic kidney disease or end stage renal disease (principal); N18.6 End stage renal disease; D63.1 Anemia in chronic kidney disease; Z99.2 Dependence on renal dialysis
CPT/HCPCS: 36415; 71045; 80053; 84484; 85025; 85610; 85730; 86140; 86850; 86900; 86901

== ENCOUNTER 2021-07-13 10:33 | Observation (INO) | payer MEDICAID ==
[~2021-07-13] VITALS: Ht 149.9 cm; Wt 64.9 kg
[2021-07-13] VITALS (15 sets, daily range): BP systolic 141–207; BP diastolic 90–113
[2021-07-13] MEDS ORDERED: KETOROLAC 15MG/ML VIAL (15MG/ML) IV SCH (11:00)
[2021-07-13] MEDS ORDERED: NICARDIPINE 25MG INJ 25 MG in 0.9% NACL 250ML 240 ML IV SCH (11:00)
[2021-07-13] MEDS ORDERED: HYDROCODONE/ACETAMINOPHEN 10/325 MG TAB PO SCH (11:00)
[2021-07-13 11:17] LABS: BASOPHILS % (AUTO) 0.6 % (0.0-5.0); EOSINOPHILS % (AUTO) 2.9 % (0.0-8.0); HEMATOCRIT 36.9 % (36-48); LYMPHOCYTES % (AUTO) 12.6 % (21.0-51.0); MEAN CORPUSCULAR HEMOGLOBIN 29.2 pg (27.0-33.0); MEAN CORPUSCULAR HGB CONC 32.5 g/dL (32.0-36.0); MEAN CORPUSCULAR VOLUME 89.8 fL (79-99); MONOCYTES % (AUTO) 5.5 % (3.0-13.0); NEUTROPHILS % (AUTO) 77.9 % (40.0-77.0); PLATELET COUNT (AUTO) 131 K/uL (130-400); RED BLOOD CELL COUNT(AUTO) 4.11 MIL/uL (4.00-5.50); RED CELL DISTRIBUTION WIDTH 16.5 % (11.0-15.5); WHITE BLOOD COUNT (AUTO) 6.5 K/uL (4.8-10.8)
[2021-07-13 12:29] LABS: ALBUMIN 4.1 g/dL (3.5-5.0); BILIRUBIN,TOTAL 1.6 mg/dL (0.2-1.0); CREATININE 4.4 mg/dL (0.5-1.5); POTASSIUM 5.6 mmol/L (3.5-5.1); TOTAL PROTEIN, SERUM 8.1 g/dL (6.0-8.3); URIC ACID 6.3 mg/dL (2.6-7.2)
[2021-07-13] MEDS ORDERED: MORPHINE 2 MG SYG IVP SCH (13:00)
[2021-07-13] MEDS ORDERED: ACETAMINOPHEN 325 MG TAB PO PRN (16:00)
[2021-07-13] MEDS ORDERED: HEPARIN 5,000 UNIT VIAL SQ SCH (16:00)
[2021-07-13] MEDS ORDERED: 0.9%NACL 10ML VIAL IVP SCH (16:00)
[2021-07-13] MEDS ORDERED: DEXTROSE 50%-WATER 50 ML DISP.SYRIN IV PRN (16:00)
[2021-07-13] MEDS ORDERED: GUAIFENESIN-DM 200/20 MG 10 ML PO PRN (16:00)
[2021-07-13] MEDS ORDERED: DIPHENHYDRAMINE HCL 25 MG CAPSULE PO PRN (16:00)
[2021-07-13] MEDS ORDERED: NITROGLYCERIN 0.4 MG SL TAB SL PRN (16:00)
[2021-07-13] MEDS: INSULIN R PO SSI SQ SCH ×2 (16:30→20:33)
[2021-07-13] MEDS ORDERED: CARV6.25 PO (17:46)
[2021-07-13] MEDS ORDERED: MINO10TA3 PO (17:46)
[2021-07-13] MEDS ORDERED: CEFD300C3 PO (17:46)
[2021-07-13] MEDS ORDERED: GABA-529 PO (17:46)
[2021-07-13] MEDS ORDERED: OMEP40CA21 PO (17:46)
[2021-07-13] MEDS ORDERED: FLUT16H NS (17:46)
[2021-07-13] MEDS: ACETAMINOPHEN 325 MG TAB PO PRN (18:35)
[2021-07-13] MEDS ORDERED: TRAMADOL HCL 50 MG TABLET PO ONE (19:30)
[2021-07-13] MEDS ORDERED: CLONIDINE HCL 0.2 MG TABLET PO ONE (19:30)
[2021-07-13] MEDS ORDERED: HYDROMORPHONE 0.5 MG SYG (0.5MG/0.5ML) IVP ONE (21:30)
[2021-07-14] VITALS (7 sets, daily range): BP systolic 137–191; BP diastolic 73–94
[2021-07-14] MEDS: CLONIDINE HCL 0.1 MG TABLET PO PRN ×2 (03:08→08:37)
[2021-07-14 03:11] LABS: HEPATITIS B SURFACE ANTIGEN Non-Reactive (Negative)
[2021-07-14 05:59] LABS: BASOPHILS % (AUTO) 0.8 % (0.0-5.0); EOSINOPHILS % (AUTO) 5.1 % (0.0-8.0); HEMATOCRIT 32.9 % (36-48); LYMPHOCYTES % (AUTO) 17.5 % (21.0-51.0); MEAN CORPUSCULAR HEMOGLOBIN 28.6 pg (27.0-33.0); MEAN CORPUSCULAR HGB CONC 31.9 g/dL (32.0-36.0); MEAN CORPUSCULAR VOLUME 89.6 fL (79-99); NEUTROPHILS % (AUTO) 69.4 % (40.0-77.0); PLATELET COUNT (AUTO) 107 K/uL (130-400); RED BLOOD CELL COUNT(AUTO) 3.67 MIL/uL (4.00-5.50); RED CELL DISTRIBUTION WIDTH 16.3 % (11.0-15.5); WHITE BLOOD COUNT (AUTO) 4.7 K/uL (4.8-10.8)
[2021-07-14 06:15] LABS: ALBUMIN 3.2 g/dL (3.5-5.0); BILIRUBIN,TOTAL 1.2 mg/dL (0.2-1.0); MAGNESIUM 2.4 mg/dL (1.80-2.40); PHOSPHORUS 7.6 mg/dL (2.5-4.9); POTASSIUM 5.2 mmol/L (3.5-5.1); TOTAL PROTEIN, SERUM 6.7 g/dL (6.0-8.3)
[2021-07-14] MEDS: ACETAMINOPHEN 325 MG TAB PO PRN (06:18)
[2021-07-14 06:23] LABS: CREATININE 9.8 mg/dL (0.5-1.5)
[2021-07-14] MEDS: INSULIN R PO SSI SQ SCH ×2 (06:23→11:30)
[2021-07-14] MEDS ORDERED: COLCHICINE 0.6 MG TABLET PO SCH (09:00)
[2021-07-14] MEDS ORDERED: Vitamin B Complex/Vit C/Folic Acid PO SCH (10:47)
[2021-07-14] MEDS ORDERED: HYDRALAZINE 25MG TABLET PO SCH ×2 (11:00→21:00)
[2021-07-14] MEDS ORDERED: CARVEDILOL 6.25 MG TABLET PO SCH ×2 (11:00→21:00)
[2021-07-14] MEDS ORDERED: CLONIDINE HCL 0.2 MG TABLET PO SCH ×2 (11:00→21:00)
[2021-07-14] MEDS ORDERED: CEFDINIR 250MG/5ML 60ML BOTTLE PO SCH (11:00)
[2021-07-14] MEDS ORDERED: SEVELAMER HCL 800 MG TABLET PO SCH (12:30)
[2021-07-14] MEDS ORDERED: AMLODIPINE 5 MG TAB PO SCH (13:00)
[2021-07-14] MEDS ORDERED: ATORVASTATIN 10 MG TABLET PO SCH (21:00)
[2021-07-14] MEDS ORDERED: SERTRALINE HCL 50 MG TABLET PO SCH (21:00)
[2021-07-14] MEDS ORDERED: LOSARTAN 50 MG TABLET PO SCH (21:00)
[2021-07-14] MEDS ORDERED: LATANOPROST 2.5 ML DROPS OU SCH (21:00)
[2021-07-14] MEDS ORDERED: MINOXIDIL 2.5 MG TAB PO SCH ×2 (21:00)
[2021-07-15] MEDS ORDERED: PANTOPRAZOLE 40 MG TAB DR PO SCH (07:30)
[2021-07-15] MEDS ORDERED: CALCITRIOL 0.25 MCG CAP PO SCH (09:00)
== END 2021-07-14 16:40 | disposition home or self-care (01) ==
LOC: EDH 10:33 → EDHIP 10:34 → 4BH 20:15
PROVIDERS: ADMIT Family Medicine; ATTEND Family Medicine
DX: I16.1 Hypertensive emergency (principal); I12.0 Hypertensive chronic kidney disease with stage 5 chronic kidney disease or end stage renal disease; N18.6 End stage renal disease; E11.22 Type 2 diabetes mellitus with diabetic chronic kidney disease; D63.1 Anemia in chronic kidney disease; E87.70 Fluid overload, unspecified; M79.671 Pain in right foot; L94.2 Calcinosis cutis; M10.9 Gout, unspecified; Z79.899 Other long term (current) drug therapy; Z90.710 Acquired absence of both cervix and uterus; Z91.15 Patient's noncompliance with renal dialysis; Z91.19 Patient's noncompliance with other medical treatment and regimen; Z99.2 Dependence on renal dialysis
CPT/HCPCS: 36415 ×2; 71045; 73630; 80053 ×2; 82948 ×5; 83735; 84100; 84484; 84550; 85025 ×2; 86704; 86706; 87340; 93005; 96365; 96366; 96375; 99291; G0378 ×24; J1170; J1885; J3490; J7050; 90935

== ENCOUNTER 2021-08-27 12:40 | Inpatient (IN) | payer MEDICAID ==
[~2021-08-27] VITALS: Ht 154.9 cm; Wt 66.7 kg
[~2021-08-27 12:40] MED LIST changes: -CARV25TA PO; +CARV6.25 PO; +CEFD300C3 PO; -DOXY-336 PO; +FLUT16H NS; +MINO10TA3 PO; -MINO2.5 PO; +OMEP40CA21 PO
[2021-08-27 13:10] LABS: BASOPHILS % (AUTO) 0.8 % (0.0-5.0); EOSINOPHILS % (AUTO) 4.4 % (0.0-8.0); HEMATOCRIT 32.9 % (36-48); LYMPHOCYTES % (AUTO) 16.3 % (21.0-51.0); MEAN CORPUSCULAR HEMOGLOBIN 29.5 pg (27.0-33.0); MEAN CORPUSCULAR HGB CONC 31.6 g/dL (32.0-36.0); MEAN CORPUSCULAR VOLUME 93.5 fL (79-99); MONOCYTES % (AUTO) 8.1 % (3.0-13.0); NEUTROPHILS % (AUTO) 70.2 % (40.0-77.0); PLATELET COUNT (AUTO) 146 K/uL (130-400); RED BLOOD CELL COUNT(AUTO) 3.52 MIL/uL (4.00-5.50); RED CELL DISTRIBUTION WIDTH 18.1 % (11.0-15.5)
[2021-08-27 13:20] LABS: POTASSIUM 5.3 mmol/L (3.5-5.1)
[2021-08-27 13:21] LABS: CREATININE 13.7 mg/dL (0.5-1.5)
[2021-08-27] MEDS ORDERED: ONDANSETRON 4MG INJ IVP PRN (13:30)
[2021-08-27] MEDS ORDERED: ACETAMINOPHEN 325 MG TAB PO PRN (13:30)
[2021-08-27 14:54] LABS: INR 0.98 (0.85-1.15); PROTHROMBIN TIME 10.7 SEC (9.6-11.6)
[2021-08-27 14:55] LABS: PARTIAL THROMBOPLASTIN TIME 27.5 SEC (26.3-35.5)
[2021-08-27] MEDS ORDERED: GABA-529 PO (17:52)
[2021-08-27 18:11] VITALS: BP 178/104
[2021-08-27 20:00] VITALS: BP 190/101
[2021-08-28] VITALS (21 sets, daily range): BP systolic 120–217; BP diastolic 65–122
[2021-08-28] MEDS ORDERED: LORAZEPAM 1 MG TABLET PO PRN (02:30)
[2021-08-28] MEDS ORDERED: LORAZEPAM 1 MG TABLET PO ONE (02:30)
[2021-08-28] MEDS: HYDRALAZINE 25MG TABLET PO SCH ×3 (02:34→21:06)
[2021-08-28] MEDS: LOSARTAN 50 MG TABLET PO SCH ×3 (02:34→21:03)
[2021-08-28] MEDS: CLONIDINE HCL 0.2 MG TABLET PO SCH ×5 (02:34→18:29)
[2021-08-28 06:31] LABS: BASOPHILS % (AUTO) 0.7 % (0.0-5.0); EOSINOPHILS % (AUTO) 4.6 % (0.0-8.0); HEMATOCRIT 33.9 % (36-48); LYMPHOCYTES % (AUTO) 18.3 % (21.0-51.0); MEAN CORPUSCULAR HGB CONC 31.6 g/dL (32.0-36.0); MEAN CORPUSCULAR VOLUME 91.9 fL (79-99); MONOCYTES % (AUTO) 7.9 % (3.0-13.0); PLATELET COUNT (AUTO) 148 K/uL (130-400); RED BLOOD CELL COUNT(AUTO) 3.69 MIL/uL (4.00-5.50); RED CELL DISTRIBUTION WIDTH 17.8 % (11.0-15.5); WHITE BLOOD COUNT (AUTO) 4.3 K/uL (4.8-10.8)
[2021-08-28 06:48] LABS: ALBUMIN 3.4 g/dL (3.5-5.0); BILIRUBIN,TOTAL 1.1 mg/dL (0.2-1.0); PHOSPHORUS 9.4 mg/dL (2.5-4.9); TOTAL PROTEIN, SERUM 7.1 g/dL (6.0-8.3)
[2021-08-28 06:53] LABS: CREATININE 14.4 mg/dL (0.5-1.5); POTASSIUM 6.1 mmol/L (3.5-5.1)
[2021-08-28] MEDS: MINOXIDIL 2.5 MG TAB PO SCH ×2 (07:46→21:02)
[2021-08-28] MEDS ORDERED: KAYEXALATE 15GM/60ML PO SCH (08:00)
[2021-08-28] MEDS ORDERED: NA ZIRCON CYCLOSIL(LOKELMA 10GM) PO SCH (08:00)
[2021-08-28] MEDS: CARVEDILOL 6.25 MG TABLET PO SCH ×2 (08:09→21:06)
[2021-08-28] MEDS: CALCITRIOL 0.25 MCG CAP PO SCH (09:47)
[2021-08-28] MEDS: GABAPENTIN 100 MG CAPSULE PO SCH ×3 (09:47→21:04)
[2021-08-28] MEDS: PANTOPRAZOLE 40 MG/VIAL IVP SCH (09:47)
[2021-08-28] MEDS: SERTRALINE HCL 50 MG TABLET PO SCH (09:48)
[2021-08-28] MEDS: FLUTICASONE PROPIONATE 50MCG/SPRAY 16 GM BOTTLE EN SCH ×2 (10:42→21:07)
[2021-08-28] MEDS: AMLODIPINE 5 MG TAB PO SCH (12:54)
[2021-08-28] MEDS ORDERED: LIDOCAINE HCL 1% 20 ML VIAL ONE (15:02)
[2021-08-28] MEDS ORDERED: HEPARIN 1,000 UNIT VIAL ONE (15:04)
[2021-08-28] MEDS ORDERED: FENTANYL CITRATE PF 50 MCG/1 ML 2ML VIAL ONE (15:10)
[2021-08-28 19:53] LABS: CREATININE 7.6 mg/dL (0.5-1.5); POTASSIUM 3.8 mmol/L (3.5-5.1)
[2021-08-28] MEDS: LATANOPROST 2.5 ML DROPS OU SCH (21:00)
[2021-08-28] MEDS: TRAMADOL HCL 50 MG TABLET PO PRN (21:04)
[2021-08-28] MEDS: ATORVASTATIN 10 MG TABLET PO SCH (21:05)
[2021-08-29] VITALS (36 sets, daily range): BP systolic 96–147; BP diastolic 41–78
[2021-08-29 04:17] LABS: HEMATOCRIT 29.8 % (36-48); MEAN CORPUSCULAR HEMOGLOBIN 28.4 pg (27.0-33.0); MEAN CORPUSCULAR HGB CONC 31.2 g/dL (32.0-36.0); MEAN CORPUSCULAR VOLUME 90.9 fL (79-99); PLATELET COUNT (AUTO) 120 K/uL (130-400); RED BLOOD CELL COUNT(AUTO) 3.28 MIL/uL (4.00-5.50); RED CELL DISTRIBUTION WIDTH 17.8 % (11.0-15.5); WHITE BLOOD COUNT (AUTO) 4.3 K/uL (4.8-10.8)
[2021-08-29 04:30] LABS: INR 1.02 (0.85-1.15); PROTHROMBIN TIME 11.1 SEC (9.6-11.6)
[2021-08-29 04:31] LABS: POTASSIUM 4.7 mmol/L (3.5-5.1)
[2021-08-29 05:06] LABS: EOSINOPHILS % (MANUAL) 6 % (1-6); LYMPHOCYTES % (MANUAL) 18 % (22-44); MAN.DIFF COMMENT-IMPRESSION MANUAL DIFFERENTIAL; MONOCYTES % (MANUAL) 4 % (2-9); SEGMENTED NEUTROPHILS % 72 % (40-70)
[2021-08-29 05:11] LABS: CREATININE 9.2 mg/dL (0.5-1.5)
[2021-08-29] MEDS: CALCITRIOL 0.25 MCG CAP PO SCH (08:14)
[2021-08-29] MEDS: MINOXIDIL 2.5 MG TAB PO SCH ×2 (08:14→20:17)
[2021-08-29] MEDS: GABAPENTIN 100 MG CAPSULE PO SCH ×3 (08:15→20:18)
[2021-08-29] MEDS: HYDRALAZINE 25MG TABLET PO SCH ×2 (08:15→20:17)
[2021-08-29] MEDS: SERTRALINE HCL 50 MG TABLET PO SCH (08:15)
[2021-08-29] MEDS: CLONIDINE HCL 0.2 MG TABLET PO SCH ×2 (08:16→20:17)
[2021-08-29] MEDS: FLUTICASONE PROPIONATE 50MCG/SPRAY 16 GM BOTTLE EN SCH ×2 (08:17→20:16)
[2021-08-29] MEDS: PANTOPRAZOLE 40 MG/VIAL IVP SCH (08:17)
[2021-08-29] MEDS: CARVEDILOL 6.25 MG TABLET PO SCH ×2 (08:17→20:17)
[2021-08-29] MEDS: LOSARTAN 50 MG TABLET PO SCH ×2 (08:18→20:17)
[2021-08-29 08:45] LABS: HEPATITIS B SURFACE ANTIGEN Non-Reactive (Negative)
[2021-08-29] MEDS ORDERED: HEPARIN 10,000 UNIT/10ML (1,000 UNIT/ML) VIAL ONE ×2 (12:50→13:24)
[2021-08-29] MEDS ORDERED: LIDOCAINE HCL 1% 20 ML VIAL ONE ×2 (12:50→13:24)
[2021-08-29] MEDS: AMLODIPINE 5 MG TAB PO SCH (13:00)
[2021-08-29] MEDS ORDERED: GLYCOPYRROLATE 1 MG/5 ML SYRINGE ONE (13:50)
[2021-08-29] MEDS ORDERED: PROPOFOL 10 MG/ML 20ML VIAL IV ONE (13:50)
[2021-08-29] MEDS ORDERED: SUCCINYLCHOLINE CHLORIDE 20 MG/ML 10 ML VIAL ONE ×2 (13:50→13:51)
[2021-08-29] MEDS ORDERED: LIDOCAINE PF 100MG/5ML (2%) SYRINGE 5ML ONE ×2 (13:50→13:51)
[2021-08-29] MEDS ORDERED: DEXAMETHASONE SOD PHOSPHATE 10MG/ML 1ML VIAL ONE (13:50)
[2021-08-29] MEDS ORDERED: ROCURONIUM 10MG/1ML SYR 10 MG/ML ML ONE (13:51)
[2021-08-29] MEDS ORDERED: NEOSTIGMINE 5MG/5ML SYR IV ONE (13:51)
[2021-08-29] MEDS ORDERED: FENTANYL CITRATE PF 50 MCG/1 ML 2ML VIAL ONE (13:51)
[2021-08-29] MEDS ORDERED: PHENYLEPHRINE HCL 10 MG/ML 1ML VIAL IV ONE (13:56)
[2021-08-29] MEDS ORDERED: IODIXANOL 320 MG/ML 100 ML VIAL ONE (14:12)
[2021-08-29] MEDS: TRAMADOL HCL 50 MG TABLET PO PRN ×2 (17:43→22:08)
[2021-08-29] MEDS: LATANOPROST 2.5 ML DROPS OU SCH (20:16)
[2021-08-29] MEDS: ATORVASTATIN 10 MG TABLET PO SCH (20:17)
[2021-08-29] MEDS ORDERED: HEPARIN 5,000 UNIT VIAL IV SCH (21:30)
[2021-08-30] VITALS: BP_SYST 121; BP_SYST 135; BP_DIAS 60; BP_DIAS 64
[2021-08-30 03:54] LABS: HEMATOCRIT 30.3 % (36-48); MEAN CORPUSCULAR HEMOGLOBIN 28.2 pg (27.0-33.0); PLATELET COUNT (AUTO) 119 K/uL (130-400); RED BLOOD CELL COUNT(AUTO) 3.33 MIL/uL (4.00-5.50); RED CELL DISTRIBUTION WIDTH 17.4 % (11.0-15.5); WHITE BLOOD COUNT (AUTO) 4.5 K/uL (4.8-10.8)
[2021-08-30 04:00] VITALS: BP 153/72
[2021-08-30 04:03] LABS: MAGNESIUM 2.1 mg/dL (1.80-2.40); PHOSPHORUS 7.8 mg/dL (2.5-4.9); POTASSIUM 4.4 mmol/L (3.5-5.1)
[2021-08-30 04:07] LABS: CREATININE 8.5 mg/dL (0.5-1.5)
[2021-08-30 04:59] LABS: BAND NEUTROPHILS % (MANUAL) 3 % (0-2); BASOPHILS % (MANUAL) 2 % (0-2); EOSINOPHILS % (MANUAL) 5 % (1-6); LYMPHOCYTES % (MANUAL) 18 % (22-44); MAN.DIFF COMMENT-IMPRESSION MANUAL DIFFERENTIAL; MONOCYTES % (MANUAL) 6 % (2-9); PLATELET MORPHOLOGY COMMENT SLIGHTLY DECREASED; SEGMENTED NEUTROPHILS % 66 % (40-70)
[2021-08-30 07:45] VITALS: BP 123/67
[2021-08-30] MEDS: CARVEDILOL 6.25 MG TABLET PO SCH ×2 (09:00→22:27)
[2021-08-30] MEDS: MINOXIDIL 2.5 MG TAB PO SCH ×2 (09:00→22:33)
[2021-08-30] MEDS: FLUTICASONE PROPIONATE 50MCG/SPRAY 16 GM BOTTLE EN SCH ×2 (09:59→21:00)
[2021-08-30] MEDS: CALCITRIOL 0.25 MCG CAP PO SCH (10:00)
[2021-08-30] MEDS: HYDRALAZINE 25MG TABLET PO SCH ×2 (10:01→22:28)
[2021-08-30] MEDS: LOSARTAN 50 MG TABLET PO SCH ×2 (10:01→22:26)
[2021-08-30] MEDS: GABAPENTIN 100 MG CAPSULE PO SCH ×3 (10:01→22:26)
[2021-08-30] MEDS: CLONIDINE HCL 0.2 MG TABLET PO SCH ×2 (10:03→22:28)
[2021-08-30] MEDS: PANTOPRAZOLE 40 MG/VIAL IVP SCH (10:11)
[2021-08-30] MEDS: SERTRALINE HCL 50 MG TABLET PO SCH (10:12)
[2021-08-30 11:35] VITALS: BP 119/45
[2021-08-30] MEDS: AMLODIPINE 5 MG TAB PO SCH (13:03)
[2021-08-30 15:30] VITALS: BP 137/65
[2021-08-30] MEDS: TRAMADOL HCL 50 MG TABLET PO PRN (16:18)
[2021-08-30 19:44] VITALS: BP 146/65
[2021-08-30] MEDS: LATANOPROST 2.5 ML DROPS OU SCH (21:00)
[2021-08-30] MEDS: ATORVASTATIN 10 MG TABLET PO SCH (22:27)
[2021-08-31] VITALS (15 sets, daily range): BP systolic 104–160; BP diastolic 56–84
[2021-08-31] MEDS: LOSARTAN 50 MG TABLET PO SCH (08:49)
[2021-08-31] MEDS: CALCITRIOL 0.25 MCG CAP PO SCH (08:50)
[2021-08-31] MEDS: HYDRALAZINE 25MG TABLET PO SCH (08:50)
[2021-08-31] MEDS: CLONIDINE HCL 0.2 MG TABLET PO SCH (08:50)
[2021-08-31] MEDS: CARVEDILOL 6.25 MG TABLET PO SCH (08:50)
[2021-08-31] MEDS: GABAPENTIN 100 MG CAPSULE PO SCH ×2 (08:50→13:34)
[2021-08-31] MEDS: SERTRALINE HCL 50 MG TABLET PO SCH (08:50)
[2021-08-31] MEDS: MINOXIDIL 2.5 MG TAB PO SCH (08:51)
[2021-08-31] MEDS ORDERED: FLUTICASONE PROPIONATE 50MCG/SPRAY 16 GM BOTTLE EN SCH (09:00)
[2021-08-31] MEDS: PANTOPRAZOLE 40 MG/VIAL IVP SCH (09:52)
[2021-08-31] MEDS: AMLODIPINE 5 MG TAB PO SCH (13:33)
== END 2021-08-31 18:16 | disposition home or self-care (01) | DRG 206 ==
LOC: EDH 12:40 → EDHIP 12:41 → 3DH 16:11 → 4DH 08-28 03:28 → 4CH 08-30 15:44
PROVIDERS: ADMIT Internal Medicine Nephrology; ATTEND Internal Medicine Nephrology
PROC: 06HM33Z Insertion of Infusion Device into Right Femoral Vein, Percutaneous Approach (ICD-10-PCS; principal; 2021-08-28)
PROC: B54BZZA Ultrasonography of Right Lower Extremity Veins, Guidance (ICD-10-PCS; 2021-08-28)
PROC: 5A1D70Z Performance of Urinary Filtration, Intermittent, Less than 6 Hours Per Day (ICD-10-PCS; 2021-08-28)
PROC: 5A1D70Z Performance of Urinary Filtration, Intermittent, Less than 6 Hours Per Day (ICD-10-PCS; 2021-08-29)
PROC: 5A1D70Z Performance of Urinary Filtration, Intermittent, Less than 6 Hours Per Day (ICD-10-PCS; 2021-08-31)
DX: T82.868A Thrombosis due to vascular prosthetic devices, implants and grafts, initial encounter (principal); I12.0 Hypertensive chronic kidney disease with stage 5 chronic kidney disease or end stage renal disease; E87.70 Fluid overload, unspecified; I16.0 Hypertensive urgency; N18.6 End stage renal disease; E78.5 Hyperlipidemia, unspecified; E87.5 Hyperkalemia; F41.9 Anxiety disorder, unspecified; E78.00 Pure hypercholesterolemia, unspecified; Y83.8 Other surgical procedures as the cause of abnormal reaction of the patient, or of later complication, without mention of misadventure at the time of the procedure; Z91.19 Patient's noncompliance with other medical treatment and regimen; Z82.49 Family history of ischemic heart disease and other diseases of the circulatory system; Z83.3 Family history of diabetes mellitus; Z99.2 Dependence on renal dialysis; Y92.89 Other specified places as the place of occurrence of the external cause
CPT/HCPCS: 36415; 36556; 36581; 36901; 77001; 80048; 80053; 82948; 83735; 84100; 84132; 85025; 85610; 85730; 86704; 86706; 87340; 90935; C1752; C1769; C1894; C9113; G0378; J0330; J1100; J1644; J2001; J2370; J2704; J2710; J3010; J3490; Q9967

== ENCOUNTER 2021-09-20 15:15 | Inpatient (IN) | payer MEDICAID ==
[~2021-09-20] VITALS: Ht 154.9 cm; Wt 68.1 kg
[~2021-09-20 15:15] MED LIST changes: -CEFD300C3 PO; +GABA-529 PO
[2021-09-20 15:51] LABS: BASOPHILS % (AUTO) 0.4 % (0.0-5.0); EOSINOPHILS % (AUTO) 0.1 % (0.0-8.0); HEMATOCRIT 36.1 % (36-48); LYMPHOCYTES % (AUTO) 3.7 % (21.0-51.0); MEAN CORPUSCULAR HEMOGLOBIN 27.9 pg (27.0-33.0); MEAN CORPUSCULAR HGB CONC 30.5 g/dL (32.0-36.0); MEAN CORPUSCULAR VOLUME 91.6 fL (79-99); MONOCYTES % (AUTO) 5.9 % (3.0-13.0); NEUTROPHILS % (AUTO) 89.4 % (40.0-77.0); NUCLEATED RED BLOOD CELLS 0.2 % (0.0-0.19); PLATELET COUNT (AUTO) 81 K/uL (130-400); RED BLOOD CELL COUNT(AUTO) 3.94 MIL/uL (4.00-5.50); RED CELL DISTRIBUTION WIDTH 16.6 % (11.0-15.5); WHITE BLOOD COUNT (AUTO) 9.9 K/uL (4.8-10.8)
[2021-09-20 16:02] LABS: INR 1.08 (0.85-1.15); PROTHROMBIN TIME 11.7 SEC (9.6-11.6)
[2021-09-20 16:03] LABS: PARTIAL THROMBOPLASTIN TIME 29.8 SEC (26.3-35.5)
[2021-09-20 16:11] LABS: ALBUMIN 3.8 g/dL (3.5-5.0); BILIRUBIN,TOTAL 2.9 mg/dL (0.2-1.0); POTASSIUM 4.4 mmol/L (3.5-5.1)
[2021-09-20] MEDS ORDERED: HYDRALAZINE 20MG/ML VIAL ONE (17:49)
[2021-09-20] MEDS ORDERED: HYDRALAZINE 20MG/ML VIAL IV ONE (18:00)
[2021-09-20] MEDS ORDERED: VANCOMYCIN 1G VIAL IVPB ONE (18:00)
[2021-09-20] MEDS ORDERED: ACETAMINOPHEN 500 MG TABLET PO ONE (18:00)
[2021-09-20] MEDS ORDERED: VANCOMYCIN 1G/250ML KIT 250 ML IV ONE (18:22)
[2021-09-20] MEDS ORDERED: ONDANSETRON 4MG INJ ONE (18:22)
[2021-09-20] MEDS ORDERED: MORPHINE 2 MG SYG ONE (18:22)
[2021-09-20] MEDS ORDERED: ONDANSETRON 4MG INJ IVP ONE (19:00)
[2021-09-20] MEDS ORDERED: MORPHINE 2 MG SYG IVP ONE (19:00)
[2021-09-20] MEDS ORDERED: VANCOMYCIN PROTOCOL PER PHARMACY IV SCH (21:00)
[2021-09-20] MEDS ORDERED: ASPIRIN 81MG CHEW TAB PO ONE (21:00)
[2021-09-20] MEDS ORDERED: NITROGLYCERIN 1GM OINT 1 INCH/1GM TD ONE (21:00)
[2021-09-20] MEDS ORDERED: VANCOMYCIN 1G/250ML KIT 250 ML IV SCH (21:00)
[2021-09-20] MEDS: ZOSYN 3.375GM +NS 50ML IV SCH (21:11)
[2021-09-20] MEDS ORDERED: DiphenhydrAMINE HCL 50 MG/ML VIAL ONE (21:34)
[2021-09-20] MEDS ORDERED: DiphenhydrAMINE HCL 50 MG/ML VIAL IV ONE (22:00)
[2021-09-20 23:00] VITALS: BP 176/98
[2021-09-20] MEDS ORDERED: TRAZ-185 PO (23:26)
[2021-09-21] VITALS (18 sets, daily range): BP systolic 134–187; BP diastolic 58–100
[2021-09-21] MEDS: ZOSYN 3.375GM +NS 50ML IV SCH ×2 (08:34→21:33)
[2021-09-21] MEDS: ASPIRIN 81MG CHEW TAB PO SCH (08:35)
[2021-09-21] MEDS: LOSARTAN 50 MG TABLET PO SCH ×2 (08:35→21:37)
[2021-09-21] MEDS: HYDRALAZINE 25MG TABLET PO SCH ×2 (08:36→21:38)
[2021-09-21] MEDS: CLONIDINE HCL 0.2 MG TABLET PO SCH ×2 (08:36→21:37)
[2021-09-21] MEDS: CARVEDILOL 6.25 MG TABLET PO SCH ×2 (08:37→21:37)
[2021-09-21] MEDS ORDERED: HYDROMORPHONE 0.5 MG SYG (0.5MG/0.5ML) IVP ONE (20:30)
[2021-09-21] MEDS: FAMOTIDINE 20MG TAB PO SCH (21:23)
[2021-09-21] MEDS: AMLODIPINE 5 MG TAB PO SCH (21:23)
[2021-09-21] MEDS: MINOXIDIL 2.5 MG TAB PO SCH (21:36)
[2021-09-22] VITALS: BP_SYST 112; BP_SYST 156; BP_DIAS 50; BP_DIAS 77
[2021-09-22 04:00] VITALS: BP 131/60
[2021-09-22 05:32] LABS: HEMATOCRIT 30.5 % (36-48); MEAN CORPUSCULAR HEMOGLOBIN 28.1 pg (27.0-33.0); MEAN CORPUSCULAR HGB CONC 31.5 g/dL (32.0-36.0); MEAN CORPUSCULAR VOLUME 89.2 fL (79-99); NUCLEATED RED BLOOD CELLS 0.5 % (0.0-0.19); PLATELET COUNT (AUTO) 72 K/uL (130-400); RED BLOOD CELL COUNT(AUTO) 3.42 MIL/uL (4.00-5.50); RED CELL DISTRIBUTION WIDTH 16.5 % (11.0-15.5); WHITE BLOOD COUNT (AUTO) 3.8 K/uL (4.8-10.8)
[2021-09-22 05:50] LABS: CREATININE 7.4 mg/dL (0.5-1.5)
[2021-09-22 07:30] VITALS: BP 120/61
[2021-09-22] MEDS: LOSARTAN 50 MG TABLET PO SCH ×2 (09:12→20:37)
[2021-09-22] MEDS: CARVEDILOL 6.25 MG TABLET PO SCH ×2 (09:12→20:38)
[2021-09-22] MEDS: ZOSYN 3.375GM +NS 50ML IV SCH ×2 (09:13→20:35)
[2021-09-22] MEDS: MINOXIDIL 2.5 MG TAB PO SCH ×2 (09:22→20:38)
[2021-09-22] MEDS: FAMOTIDINE 20MG TAB PO SCH (09:22)
[2021-09-22] MEDS: CLONIDINE HCL 0.2 MG TABLET PO SCH ×2 (09:24→20:39)
[2021-09-22] MEDS: ASPIRIN 81MG CHEW TAB PO SCH (09:26)
[2021-09-22] MEDS: HYDRALAZINE 25MG TABLET PO SCH ×2 (09:26→20:39)
[2021-09-22] MEDS: HYDROMORPHONE 0.5 MG SYG (0.5MG/0.5ML) IVP PRN ×3 (09:35→20:36)
[2021-09-22 11:00] VITALS: BP 114/55
[2021-09-22] MEDS: AMLODIPINE 5 MG TAB PO SCH (14:17)
[2021-09-22 16:00] VITALS: BP 107/51
[2021-09-22 20:00] VITALS: BP 120/66
[2021-09-23] VITALS: BP 103/54
[2021-09-23 04:00] VITALS: BP 98/49
[2021-09-23 04:57] LABS: BASOPHILS % (AUTO) 0.6 % (0.0-5.0); EOSINOPHILS % (AUTO) 7.7 % (0.0-8.0); HEMATOCRIT 32.6 % (36-48); LYMPHOCYTES % (AUTO) 13.2 % (21.0-51.0); MEAN CORPUSCULAR HEMOGLOBIN 28.3 pg (27.0-33.0); MEAN CORPUSCULAR HGB CONC 31.6 g/dL (32.0-36.0); MEAN CORPUSCULAR VOLUME 89.6 fL (79-99); MONOCYTES % (AUTO) 13.2 % (3.0-13.0); NUCLEATED RED BLOOD CELLS 0.8 % (0.0-0.19); PLATELET COUNT (AUTO) 82 K/uL (130-400); RED BLOOD CELL COUNT(AUTO) 3.64 MIL/uL (4.00-5.50); RED CELL DISTRIBUTION WIDTH 16.3 % (11.0-15.5); WHITE BLOOD COUNT (AUTO) 3.6 K/uL (4.8-10.8)
[2021-09-23 05:20] LABS: PHOSPHORUS 8.2 mg/dL (2.5-4.9); POTASSIUM 5.1 mmol/L (3.5-5.1)
[2021-09-23 05:34] LABS: CREATININE 9.1 mg/dL (0.5-1.5)
[2021-09-23 07:30] VITALS: BP 133/66
[2021-09-23] MEDS: MINOXIDIL 2.5 MG TAB PO SCH ×2 (09:47→21:24)
[2021-09-23] MEDS: ZOSYN 3.375GM +NS 50ML IV SCH ×2 (09:47→21:24)
[2021-09-23] MEDS: LOSARTAN 50 MG TABLET PO SCH ×2 (09:48→21:00)
[2021-09-23] MEDS: HYDRALAZINE 25MG TABLET PO SCH ×2 (09:48→21:00)
[2021-09-23] MEDS: CLONIDINE HCL 0.2 MG TABLET PO SCH ×2 (09:48→21:00)
[2021-09-23] MEDS: ASPIRIN 81MG CHEW TAB PO SCH (09:48)
[2021-09-23] MEDS: CARVEDILOL 6.25 MG TABLET PO SCH ×2 (09:49→21:00)
[2021-09-23] MEDS ORDERED: ONDANSETRON 4MG INJ IVP PRN (10:30)
[2021-09-23 11:30] VITALS: BP 134/66
[2021-09-23] MEDS: AMLODIPINE 5 MG TAB PO SCH (13:00)
[2021-09-23] MEDS: HYDROMORPHONE 0.5 MG SYG (0.5MG/0.5ML) IVP PRN ×2 (14:15→21:25)
[2021-09-23] MEDS ORDERED: LIDOCAINE HCL 1% 10 ML VIAL ONE (14:30)
[2021-09-23 15:25] VITALS: BP 136/63
[2021-09-23 20:00] VITALS: BP 101/50
[2021-09-23] MEDS ORDERED: EPOETIN ALFA-EPBX (ESRD) 10,000 UNIT/ML VIAL SQ ONE (21:00)
[2021-09-24] VITALS (19 sets, daily range): BP systolic 100–157; BP diastolic 48–81
[2021-09-24 04:59] LABS: MEAN CORPUSCULAR HEMOGLOBIN 27.7 pg (27.0-33.0); MEAN CORPUSCULAR HGB CONC 31.3 g/dL (32.0-36.0); MEAN CORPUSCULAR VOLUME 88.6 fL (79-99); NUCLEATED RED BLOOD CELLS 0.4 % (0.0-0.19); PLATELET COUNT (AUTO) 77 K/uL (130-400); RED BLOOD CELL COUNT(AUTO) 3.61 MIL/uL (4.00-5.50); RED CELL DISTRIBUTION WIDTH 16.3 % (11.0-15.5); WHITE BLOOD COUNT (AUTO) 4.8 K/uL (4.8-10.8)
[2021-09-24 05:10] LABS: POTASSIUM 5.1 mmol/L (3.5-5.1)
[2021-09-24 05:51] LABS: CREATININE 10.9 mg/dL (0.5-1.5)
[2021-09-24] MEDS: CARVEDILOL 6.25 MG TABLET PO SCH (09:00)
[2021-09-24] MEDS: LOSARTAN 50 MG TABLET PO SCH (09:00)
[2021-09-24] MEDS: MINOXIDIL 2.5 MG TAB PO SCH (09:00)
[2021-09-24] MEDS: HYDRALAZINE 25MG TABLET PO SCH (09:00)
[2021-09-24] MEDS: CLONIDINE HCL 0.2 MG TABLET PO SCH (09:00)
[2021-09-24] MEDS: ASPIRIN 81MG CHEW TAB PO SCH (09:00)
[2021-09-24] MEDS: AMLODIPINE 5 MG TAB PO SCH (13:00)
[2021-09-24] MEDS: ZOSYN 3.375GM +NS 50ML IV SCH (14:16)
[2021-09-24] MEDS ORDERED: CEFAZOLIN SODIUM 1 GM VIAL IVP SCH (14:55)
[2021-09-24] MEDS ORDERED: ASPI-1197 PO (15:07)
== END 2021-09-24 15:45 | disposition home or self-care (01) | DRG 466 ==
LOC: EDH 15:15 → EDHIP 15:16 → OBSVTOIN 15:16 → 3CH 23:00
PROVIDERS: ADMIT Internal Medicine; ATTEND Internal Medicine
PROC: 5A1D70Z Performance of Urinary Filtration, Intermittent, Less than 6 Hours Per Day (ICD-10-PCS; principal; 2021-09-21)
PROC: 0JPT3XZ Removal of Tunneled Vascular Access Device from Trunk Subcutaneous Tissue and Fascia, Percutaneous Approach (ICD-10-PCS; 2021-09-23)
PROC: 06PYX3Z Removal of Infusion Device from Lower Vein, External Approach (ICD-10-PCS; 2021-09-23)
PROC: 5A1D70Z Performance of Urinary Filtration, Intermittent, Less than 6 Hours Per Day (ICD-10-PCS; 2021-09-24)
DX: T82.7XXA Infection and inflammatory reaction due to other cardiac and vascular devices, implants and grafts, initial encounter (principal); I12.0 Hypertensive chronic kidney disease with stage 5 chronic kidney disease or end stage renal disease; A41.9 Sepsis, unspecified organism; N18.6 End stage renal disease; Z99.2 Dependence on renal dialysis; B96.89 Other specified bacterial agents as the cause of diseases classified elsewhere; E78.00 Pure hypercholesterolemia, unspecified; Z83.3 Family history of diabetes mellitus; Z82.49 Family history of ischemic heart disease and other diseases of the circulatory system; Y84.1 Kidney dialysis as the cause of abnormal reaction of the patient, or of later complication, without mention of misadventure at the time of the procedure; Y92.89 Other specified places as the place of occurrence of the external cause
CPT/HCPCS: 36415; 36589; 74018; 76882; 80048; 80053; 82550; 82948; 83605; 84100; 84145; 84484; 85025; 85027; 85610; 85730; 87040; 87070; 87076; 87077; 87186; 90935; 93005; G0378; J0360; J0690; J1170; J1200; J2405; J2543; J3370; J3490

== ENCOUNTER 2021-10-02 09:59 | Day surgery (SDC) | payer MEDICAID ==
[2021-09-30 11:21] LABS: BASOPHILS % (AUTO) 0.8 % (0.0-5.0); HEMATOCRIT 35.5 % (36-48); LYMPHOCYTES % (AUTO) 16.3 % (21.0-51.0); MEAN CORPUSCULAR HEMOGLOBIN 27.9 pg (27.0-33.0); MEAN CORPUSCULAR HGB CONC 30.7 g/dL (32.0-36.0); MEAN CORPUSCULAR VOLUME 90.8 fL (79-99); NEUTROPHILS % (AUTO) 68.3 % (40.0-77.0); PLATELET COUNT (AUTO) 174 K/uL (130-400); RED BLOOD CELL COUNT(AUTO) 3.91 MIL/uL (4.00-5.50); RED CELL DISTRIBUTION WIDTH 17.2 % (11.0-15.5); WHITE BLOOD COUNT (AUTO) 4.8 K/uL (4.8-10.8)
[2021-09-30 11:25] LABS: POTASSIUM 5.4 mmol/L (3.5-5.1)
[2021-09-30 11:29] LABS: CREATININE 8.8 mg/dL (0.5-1.5)
[2021-09-30 12:14] LABS: PROTHROMBIN TIME 10.9 SEC (9.6-11.6)
[2021-09-30 12:15] LABS: PARTIAL THROMBOPLASTIN TIME 29.4 SEC (26.3-35.5)
[~2021-10-02] VITALS: Ht 154.9 cm; Wt 64.9 kg
[2021-10-02] VITALS (8 sets, daily range): BP systolic 125–177; BP diastolic 69–100
[~2021-10-02 09:59] MED LIST changes: +AMOX1TAB15 PO; -ATOR10 PO; -CALC0.253 PO; +CARV25TA PO; -CARV6.25 PO; -CLON-353 PO; +CLON0.2T PO; -FLUT16H NS; -FOLI1TAB85 PO; -GABA-529 PO; -LATA7.5D OU; +LOSA100T58 PO; -LOSA50TA2 PO; -OMEP40CA21 PO; -SERT-439 PO; +TRAZ-185 PO; +renavite PO
[2021-10-02] MEDS ORDERED: 0.9%NACL 1000ML 1,000 ML IV ONE (10:32)
[2021-10-02] MEDS ORDERED: IOHEXOL-350 75 ML VIAL IV ONE ×2 (11:48→12:43)
[2021-10-02] MEDS ORDERED: NITROGLYCERIN 50MG VIAL ONE (11:48)
[2021-10-02] MEDS ORDERED: IOHEXOL-350 50ML VIAL IV ONE (11:48)
[2021-10-02] MEDS ORDERED: LIDOCAINE HCL 1% MDV 50ML VIAL ONE (11:48)
[2021-10-02] MEDS ORDERED: LIDOCAINE HCL 400MG/20ML VIAL ONE (12:08)
[2021-10-02] MEDS ORDERED: MIDAZOLAM HCL 1 MG/ML 2ML VIAL ONE (12:19)
[2021-10-02] MEDS ORDERED: FENTANYL CITRATE PF 50 MCG/1 ML 2ML VIAL ONE (12:19)
[2021-10-02] MEDS ORDERED: HYDRALAZINE 20MG/ML VIAL ONE (12:48)
[2021-10-02] MEDS ORDERED: 0.9%NACL 10ML VIAL IVP SCH (13:30)
== END 2021-10-02 16:45 | disposition home or self-care (01) ==
LOC: DAH 09:59
PROVIDERS: ATTEND Internal Medicine Cardiovascular Disease
DX: I25.10 Atherosclerotic heart disease of native coronary artery without angina pectoris (principal); I12.0 Hypertensive chronic kidney disease with stage 5 chronic kidney disease or end stage renal disease; N18.6 End stage renal disease; E78.5 Hyperlipidemia, unspecified; I49.1 Atrial premature depolarization; Z79.01 Long term (current) use of anticoagulants; Z79.899 Other long term (current) drug therapy; Z82.49 Family history of ischemic heart disease and other diseases of the circulatory system; Z83.438 Family history of other disorder of lipoprotein metabolism and other lipidemia; Z99.2 Dependence on renal dialysis
CPT/HCPCS: 36415; 71045; 80048; 85025; 85610; 85730; 93005; 93458; A4215; A4216; A4221; A4222; A4223 ×3; A4606; A4663; C1760; C1894; J0360; J1644; J2250; J3010; J3490 ×2; J7030; Q9965; Q9967; 99156; 99157

== ENCOUNTER 2021-10-05 11:23 | Inpatient (IN) | payer MEDICAID ==
[~2021-10-05] VITALS: Ht 154.9 cm; Wt 67.6 kg
[2021-10-05] VITALS (11 sets, daily range): BP systolic 156–185; BP diastolic 74–93
[2021-10-05] MEDS ORDERED: MORPHINE 4 MG SYG IVP ONE ×2 (12:00→14:00)
[2021-10-05] MEDS ORDERED: ONDANSETRON 4MG INJ IV ONE (12:00)
[2021-10-05 12:01] LABS: BASOPHILS % (AUTO) 0.7 % (0.0-5.0); EOSINOPHILS % (AUTO) 1.7 % (0.0-8.0); HEMATOCRIT 38.3 % (36-48); LYMPHOCYTES % (AUTO) 10.1 % (21.0-51.0); MEAN CORPUSCULAR HEMOGLOBIN 28.4 pg (27.0-33.0); MEAN CORPUSCULAR HGB CONC 31.1 g/dL (32.0-36.0); MEAN CORPUSCULAR VOLUME 91.4 fL (79-99); MONOCYTES % (AUTO) 6.4 % (3.0-13.0); NEUTROPHILS % (AUTO) 80.6 % (40.0-77.0); PLATELET COUNT (AUTO) 157 K/uL (130-400); RED BLOOD CELL COUNT(AUTO) 4.19 MIL/uL (4.00-5.50); WHITE BLOOD COUNT (AUTO) 8.7 K/uL (4.8-10.8)
[2021-10-05 12:26] LABS: ALBUMIN 3.7 g/dL (3.5-5.0); BILIRUBIN,TOTAL 0.9 mg/dL (0.2-1.0); TOTAL PROTEIN, SERUM 8.7 g/dL (6.0-8.3)
[2021-10-05 12:33] LABS: CREATININE 13.9 mg/dL (0.5-1.5)
[2021-10-05] MEDS ORDERED: SODIUM BICARB 50MEQ 50ML VIAL IV STA (12:46)
[2021-10-05] MEDS ORDERED: CACL 1GM SYG IVP SCH (13:00)
[2021-10-05] MEDS ORDERED: KAYEXALATE 15GM/60ML PO ONE (13:00)
[2021-10-05] MEDS ORDERED: HYDRALAZINE 20MG/ML VIAL IM ONE (13:00)
[2021-10-05] MEDS ORDERED: DEXTROSE 50%-WATER 50 ML DISP.SYRIN IV ONE (13:00)
[2021-10-05] MEDS ORDERED: INSULIN HUMULIN R 100 UNIT/ML 3ML SQ ONE (13:00)
[2021-10-05] MEDS ORDERED: IOHEXOL-350 75 ML VIAL IV ONE (13:06)
[2021-10-05] MEDS ORDERED: HYDRALAZINE 20MG/ML VIAL IV ONE ×2 (14:00→16:30)
[2021-10-05] MEDS ORDERED: HYDRALAZINE 20MG/ML VIAL ONE ×2 (14:05→16:17)
[2021-10-05] MEDS ORDERED: AMLODIPINE 5 MG TAB ONE (16:17)
[2021-10-05] MEDS ORDERED: AMLODIPINE 5 MG TAB PO ONE (16:30)
[2021-10-05] MEDS ORDERED: NICARDIPINE 25MG INJ 25 MG in 0.9% NACL 250ML 240 ML IV SCH (18:00)
[2021-10-05] MEDS ORDERED: NA ZIRCON CYCLOSIL(LOKELMA 10GM) PO ONE (18:00)
[2021-10-05] MEDS: HYDROMORPHONE 0.5 MG SYG (0.5MG/0.5ML) IVP PRN (18:02)
[2021-10-05 18:11] LABS: BASOPHILS % (AUTO) 0.8 % (0.0-5.0); EOSINOPHILS % (AUTO) 1.9 % (0.0-8.0); LYMPHOCYTES % (AUTO) 12.1 % (21.0-51.0); MEAN CORPUSCULAR HEMOGLOBIN 28.2 pg (27.0-33.0); MEAN CORPUSCULAR HGB CONC 30.8 g/dL (32.0-36.0); MEAN CORPUSCULAR VOLUME 91.6 fL (79-99); MONOCYTES % (AUTO) 6.7 % (3.0-13.0); NEUTROPHILS % (AUTO) 77.8 % (40.0-77.0); NUCLEATED RED BLOOD CELLS 0.2 % (0.0-0.19); PLATELET COUNT (AUTO) 179 K/uL (130-400); RED BLOOD CELL COUNT(AUTO) 4.15 MIL/uL (4.00-5.50); RED CELL DISTRIBUTION WIDTH 18.1 % (11.0-15.5); WHITE BLOOD COUNT (AUTO) 10.1 K/uL (4.8-10.8)
[2021-10-05] MEDS: CEFTRIAXONE 1G VIAL IVP SCH (18:24)
[2021-10-05] MEDS: NICARDIPINE 25MG INJ 25 MG in 0.9% NACL 250ML 240 ML IV SCH (18:24)
[2021-10-05 18:30] LABS: INR 1.05 (0.85-1.15); PROTHROMBIN TIME 11.4 SEC (9.6-11.6)
[2021-10-05 18:31] LABS: PARTIAL THROMBOPLASTIN TIME 29.2 SEC (26.3-35.5)
[2021-10-05 19:05] LABS: ALBUMIN 3.9 g/dL (3.5-5.0); ASPARTATE AMINOTRANSFERASE 19 U/L (10-37); BILIRUBIN,TOTAL 0.8 mg/dL (0.2-1.0); CARBON DIOXIDE 19 mmol/L (21-32); CHLORIDE 99 mmol/L (101-111); GLOMERULAR FILTR. RATE CALC 3 mL/min (>60); GLUCOSE,RANDOM 91 mg/dL (70-105); SODIUM SERUM 136 mmol/L (136-145); TOTAL PROTEIN, SERUM 9.3 g/dL (6.0-8.3); UREA NITROGEN, BLOOD 49 mg/dL (7-18)
[2021-10-05 19:07] LABS: ALANINE AMINOTRANSFERASE < 6 U/L (12-78); CREATININE 13.9 mg/dL (0.5-1.5)
[2021-10-05 19:08] LABS: POTASSIUM 6.5 mmol/L (3.5-5.1)
[2021-10-05 19:09] LABS: MAGNESIUM 2.6 mg/dL (1.80-2.40); PHOSPHORUS 10.4 mg/dL (2.5-4.9); THYROID STIMULATING HORMONE 11.96 uIU/mL (0.36-3.74)
[2021-10-05] MEDS ORDERED: LORAZEPAM 2 MG/ML 1 ML VIAL ONE (19:29)
[2021-10-05] MEDS ORDERED: HYDROMORPHONE 2 MG VIAL (2MG/ML) IVP ONE (19:30)
[2021-10-05] MEDS ORDERED: LORAZEPAM 2 MG/ML 1 ML VIAL IVP ONE (19:30)
[2021-10-05] MEDS ORDERED: 0.9%NACL 1000ML 1,000 ML IV ONE (21:08)
[2021-10-06] VITALS (36 sets, daily range): BP systolic 116–174; BP diastolic 57–89
[2021-10-06 02:05] LABS: POTASSIUM 4.9 mmol/L (3.5-5.1)
[2021-10-06 02:12] LABS: CREATININE 10.3 mg/dL (0.5-1.5)
[2021-10-06] MEDS ORDERED: NICARDIPINE 25MG INJ IV ONE (02:58)
[2021-10-06] MEDS: NICARDIPINE 25MG INJ 25 MG in 0.9% NACL 250ML 240 ML IV SCH (03:01)
[2021-10-06] MEDS: HYDROMORPHONE 0.5 MG SYG (0.5MG/0.5ML) IVP PRN ×4 (03:03→22:09)
[2021-10-06 04:21] LABS: HEPATITIS B SURFACE ANTIGEN Non-Reactive (Negative)
[2021-10-06] MEDS ORDERED: ONDANSETRON 4MG INJ IVP PRN (06:00)
[2021-10-06] MEDS ORDERED: HYDRALAZINE 20MG/ML VIAL IV PRN (08:00)
[2021-10-06] MEDS ORDERED: CLONIDINE HCL 0.2 MG TABLET PO SCH (08:00)
[2021-10-06] MEDS ORDERED: LABETALOL 20MG VIAL IV PRN (08:00)
[2021-10-06] MEDS: MINOXIDIL 2.5 MG TAB PO SCH ×2 (08:11→20:25)
[2021-10-06] MEDS: PANTOPRAZOLE 40 MG TAB DR PO SCH (08:11)
[2021-10-06] MEDS: LOSARTAN 100 MG TABLET PO SCH ×2 (08:11→20:25)
[2021-10-06] MEDS: HYDRALAZINE 25MG TABLET PO SCH ×2 (08:11→20:25)
[2021-10-06] MEDS: CARVEDILOL 25 MG TABLET PO SCH ×2 (08:12→20:24)
[2021-10-06] MEDS ORDERED: KETOROLAC 15MG/ML VIAL (15MG/ML) IV SCH (10:00)
[2021-10-06] MEDS ORDERED: SEVELAMER HCL 800 MG TABLET PO SCH (11:00)
[2021-10-06] MEDS ORDERED: CLONIDINE HCL 0.2 MG TABLET PO PRN (11:30)
[2021-10-06] MEDS: SEVELAMER HCL 800 MG TABLET PO SCH ×2 (13:22→16:50)
[2021-10-06] MEDS: CEFTRIAXONE 1G VIAL IVP SCH (16:49)
[2021-10-06] MEDS: AMLODIPINE 5 MG TAB PO SCH (20:25)
[2021-10-06] MEDS: DOCUSATE SODIUM 100 MG CAP PO SCH (20:26)
[2021-10-07] VITALS (16 sets, daily range): BP systolic 111–146; BP diastolic 49–87
[2021-10-07] MEDS: SEVELAMER HCL 800 MG TABLET PO SCH ×3 (07:30→17:29)
[2021-10-07 08:05] LABS: BASOPHILS % (AUTO) 0.8 % (0.0-5.0); EOSINOPHILS % (AUTO) 3.7 % (0.0-8.0); HEMATOCRIT 32.6 % (36-48); LYMPHOCYTES % (AUTO) 11.3 % (21.0-51.0); MEAN CORPUSCULAR HEMOGLOBIN 28.4 pg (27.0-33.0); MEAN CORPUSCULAR HGB CONC 30.1 g/dL (32.0-36.0); MEAN CORPUSCULAR VOLUME 94.5 fL (79-99); MONOCYTES % (AUTO) 7.5 % (3.0-13.0); NEUTROPHILS % (AUTO) 76.2 % (40.0-77.0); NUCLEATED RED BLOOD CELLS 0.3 % (0.0-0.19); PLATELET COUNT (AUTO) 157 K/uL (130-400); RED BLOOD CELL COUNT(AUTO) 3.45 MIL/uL (4.00-5.50); RED CELL DISTRIBUTION WIDTH 18.2 % (11.0-15.5); WHITE BLOOD COUNT (AUTO) 6.3 K/uL (4.8-10.8)
[2021-10-07] MEDS: POLYETHYLENE GLYCOL 3350 17 GM POWD.PACK PO SCH (08:25)
[2021-10-07] MEDS: HYDRALAZINE 25MG TABLET PO SCH ×2 (08:25→20:28)
[2021-10-07] MEDS: LOSARTAN 100 MG TABLET PO SCH ×2 (08:25→20:29)
[2021-10-07] MEDS: MINOXIDIL 2.5 MG TAB PO SCH ×2 (08:25→20:28)
[2021-10-07] MEDS: PANTOPRAZOLE 40 MG TAB DR PO SCH (08:26)
[2021-10-07] MEDS: CARVEDILOL 25 MG TABLET PO SCH ×2 (09:04→20:29)
[2021-10-07 09:07] LABS: INR 1.1 (0.85-1.15); PARTIAL THROMBOPLASTIN TIME 27.9 SEC (26.3-35.5); PROTHROMBIN TIME 11.9 SEC (9.6-11.6)
[2021-10-07 11:16] LABS: BILIRUBIN,TOTAL 0.6 mg/dL (0.2-1.0); TOTAL PROTEIN, SERUM 7.5 g/dL (6.0-8.3)
[2021-10-07 11:19] LABS: POTASSIUM 6.1 mmol/L (3.5-5.1)
[2021-10-07 11:20] LABS: CREATININE 12.3 mg/dL (0.5-1.5)
[2021-10-07] MEDS: HEPARIN 5,000 UNIT VIAL IV SCH (16:12)
[2021-10-07] MEDS: CEFTRIAXONE 1G VIAL IVP SCH (17:29)
[2021-10-07] MEDS: HYDROMORPHONE 0.5 MG SYG (0.5MG/0.5ML) IVP PRN ×2 (17:31→23:36)
[2021-10-07 20:06] LABS: POTASSIUM 4.9 mmol/L (3.5-5.1)
[2021-10-07 20:13] LABS: CREATININE 9.2 mg/dL (0.5-1.5)
[2021-10-07] MEDS: AMLODIPINE 5 MG TAB PO SCH (20:28)
[2021-10-07] MEDS: DOCUSATE SODIUM 100 MG CAP PO SCH (20:28)
[2021-10-08] VITALS (28 sets, daily range): BP systolic 110–167; BP diastolic 51–87
[2021-10-08] MEDS: CARVEDILOL 25 MG TABLET PO SCH ×2 (05:02→20:23)
[2021-10-08 06:14] LABS: HEMATOCRIT 32.3 % (36-48); MEAN CORPUSCULAR HEMOGLOBIN 28.2 pg (27.0-33.0); MEAN CORPUSCULAR VOLUME 91.2 fL (79-99); PLATELET COUNT (AUTO) 129 K/uL (130-400); RED BLOOD CELL COUNT(AUTO) 3.54 MIL/uL (4.00-5.50); RED CELL DISTRIBUTION WIDTH 18.3 % (11.0-15.5); WHITE BLOOD COUNT (AUTO) 6.4 K/uL (4.8-10.8)
[2021-10-08] MEDS: HYDROMORPHONE 0.5 MG SYG (0.5MG/0.5ML) IVP PRN ×2 (06:16→19:27)
[2021-10-08 06:45] LABS: POTASSIUM 5.4 mmol/L (3.5-5.1)
[2021-10-08 06:48] LABS: CREATININE 9.8 mg/dL (0.5-1.5)
[2021-10-08] MEDS: SEVELAMER HCL 800 MG TABLET PO SCH ×3 (08:00→17:00)
[2021-10-08] MEDS: DOCUSATE SODIUM 100 MG CAP PO SCH ×2 (08:09→19:26)
[2021-10-08] MEDS: HYDRALAZINE 25MG TABLET PO SCH ×2 (08:09→19:26)
[2021-10-08] MEDS: MINOXIDIL 2.5 MG TAB PO SCH ×2 (08:09→19:26)
[2021-10-08] MEDS: PANTOPRAZOLE 40 MG TAB DR PO SCH (08:09)
[2021-10-08] MEDS: LOSARTAN 100 MG TABLET PO SCH (08:09)
[2021-10-08] MEDS: POLYETHYLENE GLYCOL 3350 17 GM POWD.PACK PO SCH (09:00)
[2021-10-08] MEDS ORDERED: HEPARIN 1,000 UNIT VIAL ONE (10:40)
[2021-10-08] MEDS ORDERED: LIDOCAINE HCL 400MG/20ML VIAL ONE (10:40)
[2021-10-08] MEDS ORDERED: MIDAZOLAM HCL 1 MG/ML 2ML VIAL ONE (10:50)
[2021-10-08] MEDS ORDERED: LABETALOL 20MG VIAL IV PRN (17:30)
[2021-10-08] MEDS: HEPARIN 5,000 UNIT VIAL IV SCH (19:07)
[2021-10-08] MEDS: CEFTRIAXONE 1G VIAL IVP SCH (19:25)
[2021-10-09] MEDS: HYDROMORPHONE 0.5 MG SYG (0.5MG/0.5ML) IVP PRN ×4 (01:26→22:39)
[2021-10-09 04:05] VITALS: BP 136/58
[2021-10-09 05:37] LABS: HEMATOCRIT 33.3 % (36-48); MEAN CORPUSCULAR HEMOGLOBIN 28.5 pg (27.0-33.0); MEAN CORPUSCULAR HGB CONC 30.9 g/dL (32.0-36.0); MEAN CORPUSCULAR VOLUME 92.2 fL (79-99); PLATELET COUNT (AUTO) 129 K/uL (130-400); RED BLOOD CELL COUNT(AUTO) 3.61 MIL/uL (4.00-5.50); RED CELL DISTRIBUTION WIDTH 18.4 % (11.0-15.5); WHITE BLOOD COUNT (AUTO) 6.5 K/uL (4.8-10.8)
[2021-10-09 06:09] LABS: ALBUMIN 2.9 g/dL (3.5-5.0); ASPARTATE AMINOTRANSFERASE 14 U/L (10-37); BILIRUBIN,TOTAL 0.5 mg/dL (0.2-1.0); CARBON DIOXIDE 27 mmol/L (21-32); CHLORIDE 98 mmol/L (101-111); CREATININE 7.1 mg/dL (0.5-1.5); GLOMERULAR FILTR. RATE CALC 7 mL/min (>60); GLUCOSE,RANDOM 94 mg/dL (70-105); PHOSPHORUS 7.4 mg/dL (2.5-4.9); SODIUM SERUM 136 mmol/L (136-145); THYROID STIMULATING HORMONE 13.85 uIU/mL (0.36-3.74); TOTAL PROTEIN, SERUM 7.4 g/dL (6.0-8.3); UREA NITROGEN, BLOOD 17 mg/dL (7-18)
[2021-10-09 06:27] LABS: BASOPHILS % (MANUAL) 1 % (0-2); EOSINOPHILS % (MANUAL) 5 % (1-6); LYMPHOCYTES % (MANUAL) 16 % (22-44); MAN.DIFF COMMENT-IMPRESSION MANUAL DIFFERENTIAL; MONOCYTES % (MANUAL) 6 % (2-9); SEGMENTED NEUTROPHILS % 72 % (40-70)
[2021-10-09 06:28] LABS: PLATELET MORPHOLOGY COMMENT ADEQUATE
[2021-10-09 06:34] LABS: ALANINE AMINOTRANSFERASE < 6 U/L (12-78)
[2021-10-09 08:21] VITALS: BP 171/88
[2021-10-09] MEDS: NIFEDIPINE ER 30 MG TAB PO SCH (09:13)
[2021-10-09] MEDS: DOCUSATE SODIUM 100 MG CAP PO SCH ×2 (09:13→20:54)
[2021-10-09] MEDS: POLYETHYLENE GLYCOL 3350 17 GM POWD.PACK PO SCH (09:13)
[2021-10-09] MEDS: SEVELAMER HCL 800 MG TABLET PO SCH ×3 (09:14→16:59)
[2021-10-09] MEDS: PANTOPRAZOLE 40 MG TAB DR PO SCH (09:14)
[2021-10-09] MEDS: MINOXIDIL 2.5 MG TAB PO SCH ×2 (09:14→20:54)
[2021-10-09] MEDS: CARVEDILOL 25 MG TABLET PO SCH ×2 (09:14→20:54)
[2021-10-09] MEDS: LOSARTAN 100 MG TABLET PO SCH (09:15)
[2021-10-09] MEDS: HYDRALAZINE 25MG TABLET PO SCH (09:35)
[2021-10-09 12:14] VITALS: BP 129/63
[2021-10-09 16:42] VITALS: BP 153/68
[2021-10-09] MEDS: CEFTRIAXONE 1G VIAL IVP SCH (16:58)
[2021-10-09 19:00] VITALS: BP 154/86
[2021-10-09] MEDS: HYDRALAZINE HCL 10 MG TABLET PO SCH (20:55)
[2021-10-09 23:50] VITALS: BP 134/62
[2021-10-10] VITALS (20 sets, daily range): BP systolic 123–162; BP diastolic 61–87
[2021-10-10] MEDS: LEVOTHYROXINE 50 MCG TABLET PO SCH (05:12)
[2021-10-10] MEDS: HYDROMORPHONE 0.5 MG SYG (0.5MG/0.5ML) IVP PRN ×3 (05:12→19:21)
[2021-10-10 05:20] LABS: BASOPHILS % (AUTO) 1.3 % (0.0-5.0); EOSINOPHILS % (AUTO) 7.1 % (0.0-8.0); HEMATOCRIT 34.5 % (36-48); LYMPHOCYTES % (AUTO) 17.8 % (21.0-51.0); MEAN CORPUSCULAR HEMOGLOBIN 28.5 pg (27.0-33.0); MONOCYTES % (AUTO) 8.8 % (3.0-13.0); NEUTROPHILS % (AUTO) 64.4 % (40.0-77.0); PLATELET COUNT (AUTO) 140 K/uL (130-400); RED BLOOD CELL COUNT(AUTO) 3.75 MIL/uL (4.00-5.50); RED CELL DISTRIBUTION WIDTH 18.6 % (11.0-15.5); WHITE BLOOD COUNT (AUTO) 5.2 K/uL (4.8-10.8)
[2021-10-10 05:35] LABS: POTASSIUM 5.2 mmol/L (3.5-5.1)
[2021-10-10 05:47] LABS: CREATININE 8.8 mg/dL (0.5-1.5)
[2021-10-10] MEDS: POLYETHYLENE GLYCOL 3350 17 GM POWD.PACK PO SCH (08:45)
[2021-10-10] MEDS: SEVELAMER HCL 800 MG TABLET PO SCH ×3 (08:45→19:20)
[2021-10-10] MEDS: DOCUSATE SODIUM 100 MG CAP PO SCH ×2 (08:45→19:18)
[2021-10-10] MEDS: PANTOPRAZOLE 40 MG TAB DR PO SCH ×2 (08:45→19:18)
[2021-10-10] MEDS: HYDRALAZINE HCL 10 MG TABLET PO SCH ×3 (09:00→21:52)
[2021-10-10] MEDS: HEPARIN 5,000 UNIT VIAL IV SCH (17:03)
[2021-10-10] MEDS: MINOXIDIL 2.5 MG TAB PO SCH ×2 (19:17→21:50)
[2021-10-10] MEDS: CEFTRIAXONE 1G VIAL IVP SCH (19:17)
[2021-10-10] MEDS: NIFEDIPINE ER 30 MG TAB PO SCH (19:17)
[2021-10-10] MEDS: CARVEDILOL 25 MG TABLET PO SCH ×2 (19:19→21:52)
[2021-10-10] MEDS: LOSARTAN 100 MG TABLET PO SCH (19:20)
[2021-10-11] VITALS (8 sets, daily range): BP systolic 110–170; BP diastolic 43–80
[2021-10-11] MEDS: HYDROMORPHONE 0.5 MG SYG (0.5MG/0.5ML) IVP PRN ×4 (01:30→22:29)
[2021-10-11] MEDS: LEVOTHYROXINE 50 MCG TABLET PO SCH (06:03)
[2021-10-11] MEDS: MINOXIDIL 2.5 MG TAB PO SCH ×2 (08:55→21:00)
[2021-10-11] MEDS: HYDRALAZINE HCL 10 MG TABLET PO SCH ×3 (08:55→21:00)
[2021-10-11] MEDS: LOSARTAN 100 MG TABLET PO SCH (08:55)
[2021-10-11] MEDS: DOCUSATE SODIUM 100 MG CAP PO SCH ×2 (08:55→21:09)
[2021-10-11] MEDS: NIFEDIPINE ER 30 MG TAB PO SCH (08:56)
[2021-10-11] MEDS: CARVEDILOL 25 MG TABLET PO SCH ×2 (08:57→21:09)
[2021-10-11] MEDS: POLYETHYLENE GLYCOL 3350 17 GM POWD.PACK PO SCH (08:57)
[2021-10-11] MEDS ORDERED: ACETAMINOPHEN WITH CODEINE 1 TAB TAB PO PRN (09:00)
[2021-10-11 09:04] LABS: BASOPHILS % (AUTO) 1.4 % (0.0-5.0); EOSINOPHILS % (AUTO) 7.4 % (0.0-8.0); HEMATOCRIT 36.6 % (36-48); LYMPHOCYTES % (AUTO) 15.1 % (21.0-51.0); MEAN CORPUSCULAR HEMOGLOBIN 28.3 pg (27.0-33.0); MEAN CORPUSCULAR HGB CONC 30.9 g/dL (32.0-36.0); MEAN CORPUSCULAR VOLUME 91.7 fL (79-99); MONOCYTES % (AUTO) 7.7 % (3.0-13.0); NEUTROPHILS % (AUTO) 67.7 % (40.0-77.0); PLATELET COUNT (AUTO) 113 K/uL (130-400); RED BLOOD CELL COUNT(AUTO) 3.99 MIL/uL (4.00-5.50); WHITE BLOOD COUNT (AUTO) 4.3 K/uL (4.8-10.8)
[2021-10-11 09:13] LABS: CREATININE 6.7 mg/dL (0.5-1.5)
[2021-10-11] MEDS: GABAPENTIN 300 MG CAPSULE PO SCH (14:39)
[2021-10-11] MEDS: CEFTRIAXONE 1G VIAL IVP SCH (18:25)
[2021-10-11] MEDS ORDERED: ACETAMINOPHEN 325 MG TAB PO PRN (20:30)
[2021-10-12] VITALS (20 sets, daily range): BP systolic 102–173; BP diastolic 63–88
[2021-10-12 05:35] LABS: EOSINOPHILS % (AUTO) 8.2 % (0.0-8.0); HEMATOCRIT 33.1 % (36-48); LYMPHOCYTES % (AUTO) 19.3 % (21.0-51.0); MEAN CORPUSCULAR HEMOGLOBIN 28.5 pg (27.0-33.0); MEAN CORPUSCULAR HGB CONC 30.8 g/dL (32.0-36.0); MEAN CORPUSCULAR VOLUME 92.5 fL (79-99); MONOCYTES % (AUTO) 10.1 % (3.0-13.0); NEUTROPHILS % (AUTO) 60.8 % (40.0-77.0); PLATELET COUNT (AUTO) 125 K/uL (130-400); RED BLOOD CELL COUNT(AUTO) 3.58 MIL/uL (4.00-5.50); RED CELL DISTRIBUTION WIDTH 17.6 % (11.0-15.5); WHITE BLOOD COUNT (AUTO) 4.8 K/uL (4.8-10.8)
[2021-10-12] MEDS: LEVOTHYROXINE 50 MCG TABLET PO SCH (05:42)
[2021-10-12 05:48] LABS: ALBUMIN 2.8 g/dL (3.5-5.0); ASPARTATE AMINOTRANSFERASE 16 U/L (10-37); BILIRUBIN,TOTAL 0.8 mg/dL (0.2-1.0); CARBON DIOXIDE 28 mmol/L (21-32); CHLORIDE 98 mmol/L (101-111); GLOMERULAR FILTR. RATE CALC 6 mL/min (>60); GLUCOSE,RANDOM 82 mg/dL (70-105); SODIUM SERUM 136 mmol/L (136-145); TOTAL PROTEIN, SERUM 7.1 g/dL (6.0-8.3); UREA NITROGEN, BLOOD 24 mg/dL (7-18)
[2021-10-12 06:02] LABS: ALANINE AMINOTRANSFERASE < 6 U/L (12-78)
[2021-10-12 06:07] LABS: POTASSIUM 6.3 mmol/L (3.5-5.1)
[2021-10-12] MEDS: NA ZIRCON CYCLOSIL(LOKELMA 10GM) PO SCH (08:30)
[2021-10-12] MEDS: HYDRALAZINE HCL 10 MG TABLET PO SCH ×3 (09:00→21:41)
[2021-10-12] MEDS: HEPARIN 5,000 UNIT VIAL IV SCH (11:58)
[2021-10-12 13:04] LABS: CREATININE 4.5 mg/dL (0.5-1.5); POTASSIUM 4.5 mmol/L (3.5-5.1)
[2021-10-12] MEDS: POLYETHYLENE GLYCOL 3350 17 GM POWD.PACK PO SCH (13:36)
[2021-10-12] MEDS: NIFEDIPINE ER 30 MG TAB PO SCH (13:37)
[2021-10-12] MEDS: DOCUSATE SODIUM 100 MG CAP PO SCH ×2 (13:37→21:40)
[2021-10-12] MEDS: GABAPENTIN 300 MG CAPSULE PO SCH (13:37)
[2021-10-12] MEDS: LOSARTAN 100 MG TABLET PO SCH (13:38)
[2021-10-12] MEDS: PANTOPRAZOLE 40 MG TAB DR PO SCH (13:38)
[2021-10-12] MEDS: CARVEDILOL 25 MG TABLET PO SCH ×2 (13:39→21:40)
[2021-10-12] MEDS: MINOXIDIL 2.5 MG TAB PO SCH ×2 (13:40→21:40)
[2021-10-12] MEDS: HYDROMORPHONE 0.5 MG SYG (0.5MG/0.5ML) IVP PRN (13:44)
[2021-10-12] MEDS: CEFTRIAXONE 1G VIAL IVP SCH (17:40)
[2021-10-13] VITALS (7 sets, daily range): BP systolic 112–138; BP diastolic 4–84
[2021-10-13] MEDS: HYDROMORPHONE 0.5 MG SYG (0.5MG/0.5ML) IVP PRN ×2 (03:08→14:34)
[2021-10-13 05:19] LABS: BASOPHILS % (AUTO) 0.9 % (0.0-5.0); EOSINOPHILS % (AUTO) 8.3 % (0.0-8.0); HEMATOCRIT 33.5 % (36-48); LYMPHOCYTES % (AUTO) 19.9 % (21.0-51.0); MEAN CORPUSCULAR HEMOGLOBIN 28.7 pg (27.0-33.0); MEAN CORPUSCULAR VOLUME 92.5 fL (79-99); MONOCYTES % (AUTO) 10.4 % (3.0-13.0); PLATELET COUNT (AUTO) 110 K/uL (130-400); RED BLOOD CELL COUNT(AUTO) 3.62 MIL/uL (4.00-5.50); RED CELL DISTRIBUTION WIDTH 17.2 % (11.0-15.5); WHITE BLOOD COUNT (AUTO) 4.3 K/uL (4.8-10.8)
[2021-10-13 05:38] LABS: ALBUMIN 2.9 g/dL (3.5-5.0); ASPARTATE AMINOTRANSFERASE 25 U/L (10-37); BILIRUBIN,TOTAL 0.9 mg/dL (0.2-1.0); CARBON DIOXIDE 30 mmol/L (21-32); CHLORIDE 98 mmol/L (101-111); CREATININE 6.2 mg/dL (0.5-1.5); GLOMERULAR FILTR. RATE CALC 8 mL/min (>60); GLUCOSE,RANDOM 91 mg/dL (70-105); PHOSPHORUS 7.7 mg/dL (2.5-4.9); SODIUM SERUM 134 mmol/L (136-145); TOTAL PROTEIN, SERUM 7.1 g/dL (6.0-8.3); UREA NITROGEN, BLOOD 22 mg/dL (7-18)
[2021-10-13 05:40] LABS: ALANINE AMINOTRANSFERASE < 6 U/L (12-78)
[2021-10-13] MEDS: LEVOTHYROXINE 50 MCG TABLET PO SCH (05:42)
[2021-10-13 05:45] LABS: POTASSIUM 6.1 mmol/L (3.5-5.1)
[2021-10-13] MEDS: NA ZIRCON CYCLOSIL(LOKELMA 10GM) PO SCH (05:50)
[2021-10-13] MEDS: POLYETHYLENE GLYCOL 3350 17 GM POWD.PACK PO SCH (09:00)
[2021-10-13] MEDS ORDERED: NA ZIRCON CYCLOSIL(LOKELMA 10GM) PO SCH (10:00)
[2021-10-13] MEDS: GABAPENTIN 300 MG CAPSULE PO SCH (10:02)
[2021-10-13] MEDS: LOSARTAN 100 MG TABLET PO SCH (10:07)
[2021-10-13] MEDS: HYDRALAZINE HCL 10 MG TABLET PO SCH ×3 (10:08→20:51)
[2021-10-13] MEDS: CARVEDILOL 25 MG TABLET PO SCH ×2 (10:08→20:52)
[2021-10-13] MEDS: PANTOPRAZOLE 40 MG TAB DR PO SCH (10:08)
[2021-10-13] MEDS: MINOXIDIL 2.5 MG TAB PO SCH ×2 (10:08→20:51)
[2021-10-13] MEDS: DOCUSATE SODIUM 100 MG CAP PO SCH ×2 (10:08→20:55)
[2021-10-13] MEDS: NIFEDIPINE ER 30 MG TAB PO SCH (10:09)
[2021-10-13] MEDS: CEFTRIAXONE 1G VIAL IVP SCH (17:38)
[2021-10-13] MEDS: ACETAMINOPHEN WITH CODEINE 1 TAB TAB PO PRN (20:54)
[2021-10-14] VITALS (20 sets, daily range): BP systolic 120–158; BP diastolic 56–83
[2021-10-14] MEDS: HYDROMORPHONE 0.5 MG SYG (0.5MG/0.5ML) IVP PRN (01:54)
[2021-10-14 04:54] LABS: MEAN CORPUSCULAR HGB CONC 30.6 g/dL (32.0-36.0); MEAN CORPUSCULAR VOLUME 91.4 fL (79-99); PLATELET COUNT (AUTO) 136 K/uL (130-400); RED BLOOD CELL COUNT(AUTO) 3.72 MIL/uL (4.00-5.50); RED CELL DISTRIBUTION WIDTH 16.9 % (11.0-15.5); WHITE BLOOD COUNT (AUTO) 3.8 K/uL (4.8-10.8)
[2021-10-14 05:18] LABS: ALBUMIN 2.9 g/dL (3.5-5.0); BILIRUBIN,TOTAL 0.8 mg/dL (0.2-1.0); MAGNESIUM 2.1 mg/dL (1.80-2.40); TOTAL PROTEIN, SERUM 7.4 g/dL (6.0-8.3)
[2021-10-14 05:25] LABS: CREATININE 8.1 mg/dL (0.5-1.5); EOSINOPHILS % (MANUAL) 12 % (1-6); LYMPHOCYTES % (MANUAL) 12 % (22-44); MAN.DIFF COMMENT-IMPRESSION MANUAL DIFFERENTIAL; MONOCYTES % (MANUAL) 8 % (2-9); PLATELET MORPHOLOGY COMMENT ADEQUATE; POTASSIUM 6.6 mmol/L (3.5-5.1); SEGMENTED NEUTROPHILS % 68 % (40-70)
[2021-10-14] MEDS ORDERED: KAYEXALATE 15GM/60ML PO ONE (05:30)
[2021-10-14] MEDS: LEVOTHYROXINE 50 MCG TABLET PO SCH (05:50)
[2021-10-14] MEDS: PANTOPRAZOLE 40 MG TAB DR PO SCH (09:01)
[2021-10-14] MEDS: ACETAMINOPHEN WITH CODEINE 1 TAB TAB PO PRN ×2 (09:01→22:39)
[2021-10-14] MEDS: HYDRALAZINE HCL 10 MG TABLET PO SCH ×3 (09:02→20:20)
[2021-10-14] MEDS: NIFEDIPINE ER 30 MG TAB PO SCH (09:02)
[2021-10-14] MEDS: CARVEDILOL 25 MG TABLET PO SCH ×2 (09:02→20:21)
[2021-10-14] MEDS: LOSARTAN 100 MG TABLET PO SCH (09:02)
[2021-10-14] MEDS: POLYETHYLENE GLYCOL 3350 17 GM POWD.PACK PO SCH (09:03)
[2021-10-14] MEDS: MINOXIDIL 2.5 MG TAB PO SCH ×2 (09:03→20:19)
[2021-10-14] MEDS: DOCUSATE SODIUM 100 MG CAP PO SCH ×2 (09:03→20:24)
[2021-10-14] MEDS: GABAPENTIN 300 MG CAPSULE PO SCH ×2 (14:10→14:14)
[2021-10-14] MEDS ORDERED: HYDROMORPHONE 0.5 MG SYG (0.5MG/0.5ML) IVP PRN (14:30)
[2021-10-14] MEDS: GABAPENTIN 100 MG CAPSULE PO SCH (15:00)
[2021-10-14] MEDS: HEPARIN 5,000 UNIT VIAL IV SCH (17:21)
[2021-10-14] MEDS: CEFTRIAXONE 1G VIAL IVP SCH (17:56)
[2021-10-15 00:01] VITALS: BP 122/76
[2021-10-15 03:42] VITALS: BP 129/60
[2021-10-15] MEDS: LEVOTHYROXINE 50 MCG TABLET PO SCH (05:46)
[2021-10-15 05:59] LABS: BASOPHILS % (AUTO) 1.6 % (0.0-5.0); EOSINOPHILS % (AUTO) 8.5 % (0.0-8.0); HEMATOCRIT 31.4 % (36-48); LYMPHOCYTES % (AUTO) 18.4 % (21.0-51.0); MEAN CORPUSCULAR HEMOGLOBIN 28.6 pg (27.0-33.0); MEAN CORPUSCULAR HGB CONC 31.2 g/dL (32.0-36.0); MEAN CORPUSCULAR VOLUME 91.5 fL (79-99); MONOCYTES % (AUTO) 11.4 % (3.0-13.0); NEUTROPHILS % (AUTO) 59.6 % (40.0-77.0); PLATELET COUNT (AUTO) 127 K/uL (130-400); RED BLOOD CELL COUNT(AUTO) 3.43 MIL/uL (4.00-5.50); RED CELL DISTRIBUTION WIDTH 16.7 % (11.0-15.5); WHITE BLOOD COUNT (AUTO) 3.8 K/uL (4.8-10.8)
[2021-10-15 06:15] LABS: POTASSIUM 5.2 mmol/L (3.5-5.1)
[2021-10-15 08:00] VITALS: BP 135/68
[2021-10-15] MEDS: HYDRALAZINE HCL 10 MG TABLET PO SCH ×3 (08:14→21:38)
[2021-10-15] MEDS: PANTOPRAZOLE 40 MG TAB DR PO SCH (08:14)
[2021-10-15] MEDS: MINOXIDIL 2.5 MG TAB PO SCH ×2 (08:14→21:38)
[2021-10-15] MEDS: DOCUSATE SODIUM 100 MG CAP PO SCH ×2 (08:14→21:38)
[2021-10-15] MEDS: NIFEDIPINE ER 30 MG TAB PO SCH (08:14)
[2021-10-15] MEDS: POLYETHYLENE GLYCOL 3350 17 GM POWD.PACK PO SCH (08:14)
[2021-10-15] MEDS: CARVEDILOL 25 MG TABLET PO SCH ×2 (08:14→21:39)
[2021-10-15 12:00] VITALS: BP 130/61
[2021-10-15] MEDS: ACETAMINOPHEN WITH CODEINE 1 TAB TAB PO PRN ×2 (12:40→21:45)
[2021-10-15 16:00] VITALS: BP 117/66
[2021-10-15] MEDS: GABAPENTIN 100 MG CAPSULE PO SCH (16:34)
[2021-10-15] MEDS: CEFTRIAXONE 1G VIAL IVP SCH (18:12)
[2021-10-15 20:00] VITALS: BP 126/55
[2021-10-16] VITALS (7 sets, daily range): BP systolic 117–187; BP diastolic 55–70
[2021-10-16 04:20] LABS: BASOPHILS % (AUTO) 0.8 % (0.0-5.0); EOSINOPHILS % (AUTO) 10.9 % (0.0-8.0); HEMATOCRIT 32.9 % (36-48); LYMPHOCYTES % (AUTO) 21.1 % (21.0-51.0); MEAN CORPUSCULAR HEMOGLOBIN 28.1 pg (27.0-33.0); MEAN CORPUSCULAR VOLUME 90.6 fL (79-99); NEUTROPHILS % (AUTO) 54.9 % (40.0-77.0); PLATELET COUNT (AUTO) 139 K/uL (130-400); RED BLOOD CELL COUNT(AUTO) 3.63 MIL/uL (4.00-5.50); RED CELL DISTRIBUTION WIDTH 16.3 % (11.0-15.5); WHITE BLOOD COUNT (AUTO) 3.8 K/uL (4.8-10.8)
[2021-10-16 04:41] LABS: CREATININE 7.7 mg/dL (0.5-1.5); POTASSIUM 5.6 mmol/L (3.5-5.1)
[2021-10-16] MEDS: LEVOTHYROXINE 50 MCG TABLET PO SCH (05:41)
[2021-10-16] MEDS: CARVEDILOL 25 MG TABLET PO SCH ×2 (05:42→09:32)
[2021-10-16] MEDS: ACETAMINOPHEN WITH CODEINE 1 TAB TAB PO PRN (05:42)
[2021-10-16] MEDS: POLYETHYLENE GLYCOL 3350 17 GM POWD.PACK PO SCH (09:00)
[2021-10-16] MEDS: DOCUSATE SODIUM 100 MG CAP PO SCH ×2 (09:31→21:00)
[2021-10-16] MEDS: PANTOPRAZOLE 40 MG TAB DR PO SCH (09:31)
[2021-10-16] MEDS: HYDRALAZINE HCL 10 MG TABLET PO SCH ×3 (09:32→21:00)
[2021-10-16] MEDS: NIFEDIPINE ER 30 MG TAB PO SCH (09:32)
[2021-10-16] MEDS: MINOXIDIL 2.5 MG TAB PO SCH ×2 (09:32→21:00)
[2021-10-16] MEDS: GABAPENTIN 100 MG CAPSULE PO SCH (14:08)
[2021-10-16] MEDS ORDERED: CEFAZOLIN SODIUM 1 GM VIAL IVP PRN (16:00)
[2021-10-16] MEDS ORDERED: MIDAZOLAM HCL 1 MG/ML 2ML VIAL ONE (17:40)
[2021-10-16] MEDS ORDERED: PROPOFOL 10 MG/ML 20ML VIAL IV ONE (17:41)
[2021-10-16] MEDS ORDERED: FENTANYL CITRATE PF 50 MCG/1 ML 2ML VIAL ONE ×2 (17:41→20:40)
[2021-10-16] MEDS: CEFTRIAXONE 1G VIAL IVP SCH (18:00)
[2021-10-16 18:01] LABS: ABG BASE EXCESS 4.3 mmol/L (-2.0-3.0); ABG HCO3 30.2 mmol/L (21.0-28.0); ABG OXYGEN SATURATION 81.8 % (95.0-99.0); ABG PCO2 51 mmHg (32-45)
[2021-10-17] VITALS (40 sets, daily range): BP systolic 94–156; BP diastolic 47–83
[2021-10-17] MEDS: HEPARIN 5,000 UNIT VIAL IV SCH (01:59)
[2021-10-17] MEDS: CEFTRIAXONE 1G VIAL IVP SCH ×2 (02:33→17:31)
[2021-10-17] MEDS: DOCUSATE SODIUM 100 MG CAP PO SCH ×3 (02:34→20:56)
[2021-10-17] MEDS: ACETAMINOPHEN WITH CODEINE 1 TAB TAB PO PRN ×3 (02:34→22:33)
[2021-10-17] MEDS: CARVEDILOL 25 MG TABLET PO SCH ×2 (05:46→20:56)
[2021-10-17] MEDS: LEVOTHYROXINE 50 MCG TABLET PO SCH (05:46)
[2021-10-17 07:10] LABS: CREATININE 5.8 mg/dL (0.5-1.5); POTASSIUM 5.1 mmol/L (3.5-5.1)
[2021-10-17] MEDS: PANTOPRAZOLE 40 MG TAB DR PO SCH (08:32)
[2021-10-17] MEDS: NIFEDIPINE ER 30 MG TAB PO SCH (08:32)
[2021-10-17] MEDS: HYDRALAZINE HCL 10 MG TABLET PO SCH ×3 (08:32→20:55)
[2021-10-17] MEDS: POLYETHYLENE GLYCOL 3350 17 GM POWD.PACK PO SCH (08:33)
[2021-10-17] MEDS: MINOXIDIL 2.5 MG TAB PO SCH ×2 (08:33→20:56)
[2021-10-17] MEDS ORDERED: GLYCOPYRROLATE 1 MG/5 ML SYRINGE ONE (12:45)
[2021-10-17] MEDS ORDERED: DEXAMETHASONE SOD PHOSPHATE 10MG/ML 1ML VIAL ONE (12:45)
[2021-10-17] MEDS ORDERED: SUCCINYLCHOLINE 200MG/10ML SYR ONE (12:45)
[2021-10-17] MEDS ORDERED: ROCURONIUM 10MG/1ML SYR 10 MG/ML ML ONE (12:46)
[2021-10-17] MEDS ORDERED: PROPOFOL 10 MG/ML 20ML VIAL IV ONE (12:46)
[2021-10-17] MEDS ORDERED: ONDANSETRON 4MG INJ ONE (12:46)
[2021-10-17] MEDS ORDERED: NEOSTIGMINE 5MG/5ML SYR IV ONE (12:46)
[2021-10-17] MEDS ORDERED: FENTANYL CITRATE PF 50 MCG/1 ML 2ML VIAL ONE (12:47)
[2021-10-17] MEDS ORDERED: CEFAZOLIN SODIUM 1 GM VIAL ONE (13:12)
[2021-10-17] MEDS ORDERED: DEXTROSE 50%-WATER 50 ML DISP.SYRIN IV ONE (15:02)
[2021-10-17] MEDS: GABAPENTIN 100 MG CAPSULE PO SCH (17:31)
[2021-10-17] MEDS: CEFAZOLIN SODIUM 1 GM VIAL IVP SCH (22:10)
[2021-10-18] VITALS (16 sets, daily range): BP systolic 95–133; BP diastolic 42–90
[2021-10-18] MEDS ORDERED: HYDROMORPHONE 0.5 MG SYG (0.5MG/0.5ML) IVP ONE ×2 (01:00)
[2021-10-18] MEDS: LEVOTHYROXINE 50 MCG TABLET PO SCH (05:53)
[2021-10-18] MEDS: ACETAMINOPHEN WITH CODEINE 1 TAB TAB PO PRN ×2 (05:54→12:28)
[2021-10-18 08:55] LABS: BASOPHILS % (AUTO) 0.5 % (0.0-5.0); EOSINOPHILS % (AUTO) 5.5 % (0.0-8.0); HEMATOCRIT 32.1 % (36-48); LYMPHOCYTES % (AUTO) 9.9 % (21.0-51.0); MEAN CORPUSCULAR HEMOGLOBIN 28.4 pg (27.0-33.0); MEAN CORPUSCULAR HGB CONC 30.2 g/dL (32.0-36.0); MEAN CORPUSCULAR VOLUME 93.9 fL (79-99); NEUTROPHILS % (AUTO) 75.8 % (40.0-77.0); PLATELET COUNT (AUTO) 144 K/uL (130-400); RED BLOOD CELL COUNT(AUTO) 3.42 MIL/uL (4.00-5.50); RED CELL DISTRIBUTION WIDTH 16.2 % (11.0-15.5); WHITE BLOOD COUNT (AUTO) 5.8 K/uL (4.8-10.8)
[2021-10-18] MEDS: CARVEDILOL 25 MG TABLET PO SCH (09:00)
[2021-10-18 09:27] LABS: CREATININE 8.1 mg/dL (0.5-1.5); POTASSIUM 7.4 mmol/L (3.5-5.1)
[2021-10-18] MEDS: CEFAZOLIN SODIUM 1 GM VIAL IVP SCH (10:00)
[2021-10-18] MEDS: HEPARIN 5,000 UNIT VIAL IV SCH (11:04)
[2021-10-18] MEDS: POLYETHYLENE GLYCOL 3350 17 GM POWD.PACK PO SCH (11:56)
[2021-10-18] MEDS: NIFEDIPINE ER 30 MG TAB PO SCH (11:56)
[2021-10-18] MEDS: PANTOPRAZOLE 40 MG TAB DR PO SCH (11:57)
[2021-10-18] MEDS: DOCUSATE SODIUM 100 MG CAP PO SCH ×2 (11:57→22:36)
[2021-10-18] MEDS: HYDRALAZINE HCL 10 MG TABLET PO SCH ×3 (11:57→21:00)
[2021-10-18] MEDS: MINOXIDIL 2.5 MG TAB PO SCH ×2 (11:58→21:00)
[2021-10-18] MEDS: GABAPENTIN 100 MG CAPSULE PO SCH (15:11)
[2021-10-18] MEDS: DULOXETINE HCL 30 MG CAP PO SCH (16:00)
[2021-10-18] MEDS: CEFTRIAXONE 1G VIAL IVP SCH (19:31)
[2021-10-18] MEDS: CARVEDILOL 6.25 MG TABLET PO SCH (21:00)
[2021-10-19] VITALS (20 sets, daily range): BP systolic 93–135; BP diastolic 41–70
[2021-10-19 05:33] LABS: CREATININE 7.4 mg/dL (0.5-1.5); POTASSIUM 5.9 mmol/L (3.5-5.1)
[2021-10-19] MEDS: LEVOTHYROXINE 50 MCG TABLET PO SCH (06:10)
[2021-10-19] MEDS: DULOXETINE HCL 30 MG CAP PO SCH (09:00)
[2021-10-19] MEDS: PANTOPRAZOLE 40 MG TAB DR PO SCH (09:00)
[2021-10-19] MEDS: DOCUSATE SODIUM 100 MG CAP PO SCH (09:00)
[2021-10-19] MEDS: HYDRALAZINE HCL 10 MG TABLET PO SCH (09:00)
[2021-10-19] MEDS: POLYETHYLENE GLYCOL 3350 17 GM POWD.PACK PO SCH (09:00)
[2021-10-19] MEDS: MINOXIDIL 2.5 MG TAB PO SCH (09:00)
[2021-10-19] MEDS: CARVEDILOL 6.25 MG TABLET PO SCH (09:00)
[2021-10-19] MEDS: NIFEDIPINE ER 30 MG TAB PO SCH (09:00)
[2021-10-19] MEDS: HEPARIN 5,000 UNIT VIAL IV SCH (12:13)
[2021-10-19] MEDS ORDERED: CARV6.2579 PO (15:45)
[2021-10-19] MEDS ORDERED: POLY17PO4 PO (15:45)
[2021-10-19] MEDS ORDERED: NIFE-40 PO (15:45)
[2021-10-19] MEDS ORDERED: PANT40TA PO (15:45)
[2021-10-19] MEDS ORDERED: GABA100C PO (15:45)
[2021-10-19] MEDS ORDERED: LEVO50TA4 PO (15:45)
[2021-10-19] MEDS ORDERED: HYDR-3420 PO (15:45)
== END 2021-10-19 18:15 | disposition home or self-care (01) | DRG 181 ==
LOC: EDH 11:23 → EDHIP 11:24 → UNDOADMIN 17:35 → 2CH 10-06 02:57 → EDHIP 10-06 02:57 → 3AH 10-07 07:18 → 2CH 10-07 07:18
PROVIDERS: ADMIT Internal Medicine; ATTEND Internal Medicine
PROC: 06HN33Z Insertion of Infusion Device into Left Femoral Vein, Percutaneous Approach (ICD-10-PCS; principal; 2021-10-05)
PROC: B54CZZA Ultrasonography of Left Lower Extremity Veins, Guidance (ICD-10-PCS; 2021-10-05)
PROC: 5A1D70Z Performance of Urinary Filtration, Intermittent, Less than 6 Hours Per Day (ICD-10-PCS; 2021-10-06)
PROC: 5A1D70Z Performance of Urinary Filtration, Intermittent, Less than 6 Hours Per Day (ICD-10-PCS; 2021-10-07)
PROC: 0JHL3XZ Insertion of Tunneled Vascular Access Device into Right Upper Leg Subcutaneous Tissue and Fascia, Percutaneous Approach (ICD-10-PCS; 2021-10-08)
PROC: 06HM33Z Insertion of Infusion Device into Right Femoral Vein, Percutaneous Approach (ICD-10-PCS; 2021-10-08)
PROC: B54BZZA Ultrasonography of Right Lower Extremity Veins, Guidance (ICD-10-PCS; 2021-10-08)
PROC: 5A1D70Z Performance of Urinary Filtration, Intermittent, Less than 6 Hours Per Day (ICD-10-PCS; 2021-10-08)
PROC: 5A1D70Z Performance of Urinary Filtration, Intermittent, Less than 6 Hours Per Day (ICD-10-PCS; 2021-10-10)
PROC: 5A1D70Z Performance of Urinary Filtration, Intermittent, Less than 6 Hours Per Day (ICD-10-PCS; 2021-10-12)
PROC: 5A1D70Z Performance of Urinary Filtration, Intermittent, Less than 6 Hours Per Day (ICD-10-PCS; 2021-10-14)
PROC: 5A1D70Z Performance of Urinary Filtration, Intermittent, Less than 6 Hours Per Day (ICD-10-PCS; 2021-10-16)
PROC: 041L0ZS Bypass Left Femoral Artery to Lower Extremity Vein, Open Approach (ICD-10-PCS; 2021-10-17)
PROC: 5A1D70Z Performance of Urinary Filtration, Intermittent, Less than 6 Hours Per Day (ICD-10-PCS; 2021-10-18)
PROC: 5A1D70Z Performance of Urinary Filtration, Intermittent, Less than 6 Hours Per Day (ICD-10-PCS; 2021-10-19)
DX: T82.868A Thrombosis due to vascular prosthetic devices, implants and grafts, initial encounter (principal); J96.01 Acute respiratory failure with hypoxia; G93.49 Other encephalopathy; E87.2 Acidosis; I12.0 Hypertensive chronic kidney disease with stage 5 chronic kidney disease or end stage renal disease; D64.9 Anemia, unspecified; E11.22 Type 2 diabetes mellitus with diabetic chronic kidney disease; Z20.822 Contact with and (suspected) exposure to COVID-19; N18.6 End stage renal disease; E11.51 Type 2 diabetes mellitus with diabetic peripheral angiopathy without gangrene; E78.5 Hyperlipidemia, unspecified; I16.1 Hypertensive emergency; E87.5 Hyperkalemia; E66.01 Morbid (severe) obesity due to excess calories; E78.00 Pure hypercholesterolemia, unspecified; E87.6 Hypokalemia; E87.70 Fluid overload, unspecified; F11.20 Opioid dependence, uncomplicated; G89.4 Chronic pain syndrome; I25.10 Atherosclerotic heart disease of native coronary artery without angina pectoris; J81.1 Chronic pulmonary edema; Z99.2 Dependence on renal dialysis; Z79.899 Other long term (current) drug therapy; Z82.49 Family history of ischemic heart disease and other diseases of the circulatory system; Z83.3 Family history of diabetes mellitus; Z86.19 Personal history of other infectious and parasitic diseases; Z91.19 Patient's noncompliance with other medical treatment and regimen; Z68.28 Body mass index [BMI] 28.0-28.9, adult; Y83.8 Other surgical procedures as the cause of abnormal reaction of the patient, or of later complication, without mention of misadventure at the time of the procedure; Y92.89 Other specified places as the place of occurrence of the external cause
CPT/HCPCS: 36415; 36558; 36600; 70450; 71045; 74177; 76830; 76882; 77001; 80048; 80053; 82435; 82803; 82947; 82948; 83605; 83735; 83970; 84100; 84132; 84295; 84443; 84484; 85018; 85025; 85027; 85610; 85730; 86704; 86706; 86850; 86870; 86900; 86901; 86905; 86922; 87040; 87340; 87635; 87804; 90935; 93005; 93458; 93926; 93970; 93971; 99156; 99157; A4606; C1750; C1894; C9803; G0378; J0330; J0360; J0690; J0696; J1100; J1170; J1644; J1815; J1885; J2060; J2250; J2270; J2405; J2704; J2710; J3010; J3490; J7030; J7050; J7070; Q9967